=== PATIENT | male | born 1945 | race Caucasian/White ===

== ENCOUNTER 2019-07-23 15:00 | Inpatient (IN) | payer BC, MEDICARE ==
[2019-07-22] MEDS: InsuLIN R (HUMAN) 100 UNITS in SODIUM CHL 0.9% 99 ML IV SCH ×2
[2019-07-22] MEDS: SODIUM CHLORIDE 0.9% 1,000 ML IV SCH (23:00)
[2019-07-23] VITALS (13 sets, daily range): BP systolic 69–98; BP diastolic 39–64
[~2019-07-23] VITALS: Ht 165.1 cm; Wt 72.8 kg
[2019-07-23] MEDS: ACCU-CHEK COMFORT CURVE STRIP VI SCH ×5 (01:00→22:45)
[2019-07-23] MEDS ORDERED: MIDAZOLAM DRIP 50 mg/50mL 50 ML IV ONE (15:11)
[2019-07-23] MEDS ORDERED: ETOMIDATE (2MG/ML) 20ML VIAL IV ONE ×2 (15:11→16:30)
[2019-07-23] MEDS ORDERED: SUCCINYLCHOLINE CHLORIDE 20 MG/ML 10ML VIAL IV ONE ×2 (15:11→16:30)
[2019-07-23] MEDS ORDERED: SODIUM CHLORIDE 0.9% 1,000 ML IV ONE ×2 (15:11)
[2019-07-23] MEDS ORDERED: cefTRIAXone 1GM/50ML D5W 50 ML IV ONE (15:15)
[2019-07-23] MEDS ORDERED: NOREPINEPHRINE 8 MG/250ML KIT 250 ML IV ONE (15:19)
[2019-07-23] MEDS: MIDAZOLAM DRIP 50 mg/50mL 50 ML IV SCH (15:20)
[2019-07-23 15:46] LABS: Urine Bacteria NONE SEEN /hpf (None Seen); Urine Blood 1+ /uL (Negative); Urine Hyaline Cast MANY /lpf (0 - 2); Urine Mucus FEW (None Seen); Urine Specific Gravity 1.026 (1.001-1.035); Urine WBC 14 /hpf (0 - 3)
[2019-07-23] MEDS ORDERED: PROPOFOL 100 ML IV ONE (15:49)
[2019-07-23 16:04] LABS: Basophils # (auto) 0 uL; Eosinophils # (auto) 0 uL; Hemoglobin 10.4 g/dL (13.5-17.5); Lymphocytes # (auto) 0.3 uL; Monocytes # (auto) 0 uL; Neutrophils # (auto) 2.9 uL; White Blood Cell 3.2 10^3/uL (4.4-10.8)
[2019-07-23 16:09] LABS: Basophils % (auto) 0.2 % (0.0-2.0); Eosinophils % (auto) 0.1 % (0.0-7.0); Hematocrit 34.3 % (41.0-53.0); Mean Corpuscular Hemoglobin 34.4 pg (28.0-32.0); Mean Corpuscular Hgb Conc. 30.3 g/dL (32.0-36.0); Mean Corpuscular Volume 113.9 fL (80.0-100.0); Monocytes % (auto) 1.3 % (0.0-12.0); Neutrophils % (auto) 90.4 % (37.0-80.0); Platelet Count (auto) 71 10^3/uL (140-450); Red Blood Cells 3.01 10^6/uL (4.5-5.90); Red Cell Distribution Width 19.2 % (11.8-14.3)
[2019-07-23] MEDS: NOREPINEPHRINE 8 MG/250ML KIT 250 ML IV SCH (16:10)
[2019-07-23 16:20] LABS: INR 1.13 (0.9-1.15); Partial Thromboplastin Time 26.5 sec (23.64-32.05)
[2019-07-23] MEDS: PROPOFOL 100 ML IV SCH (16:20)
[2019-07-23 16:25] LABS: Lactic Acid w/Reflex 2.9 mmol/L (0.4-2.0)
[2019-07-23 16:37] LABS: Albumin 2.7 g/dL (3.4-5.0); BUN/Creatinine Ratio 28.6; Bilirubin, Total 1.1 mg/dL (0.2-1.0); Calcium 7.8 mg/dL (8.5-10.1); Potassium 4.8 mmol/L (3.5-5.1); Total Protein 5.4 g/dL (6.4-8.2)
[2019-07-23] MEDS ORDERED: InsuLIN R (HUMAN) 100 UNITS in SODIUM CHL 0.9% 99 ML IV SCH ×6 (16:45→22:26)
[2019-07-23] MEDS ORDERED: DEXTROSE (50%) 50ML SYRG IV PRN ×4 (16:45→22:30)
[2019-07-23] MEDS: SODIUM CHLORIDE 0.9% 1,000 ML IV SCH ×2 (16:59→18:45)
[2019-07-23] MEDS ORDERED: VANCOMYCIN 1GM/250ML 250 ML IV ONE (17:00)
[2019-07-23 17:29] LABS: Phosphorus 8.7 mg/dL (2.5-4.90)
[2019-07-23] MEDS ORDERED: InsuLIN REG 1unit/0.01ml Soln (100units/ml) IV ONE (18:15)
[2019-07-23] MEDS ORDERED: NITROGLYCERIN 0.4 MG SL TAB SL PRN (19:00)
[2019-07-23] MEDS ORDERED: MORPHINE SULF INJ 2 MG/ML SYRINGE 1ML IV PRN (19:00)
[2019-07-23] MEDS ORDERED: fentaNYL Drip 2500mCg/250mlNS 250 ML IV ONE (19:14)
[2019-07-23] MEDS: ALBUTEROL SULF 2.5 MG/0.5ML(0.5%) NEB SOLN NEB SCH (19:15)
[2019-07-23] MEDS: IPRATROPIUM BROM 0.5 MG/2.5ML INH SOL NEB SCH (19:17)
[2019-07-23] MEDS: fentaNYL Drip 2500mCg/250mlNS 250 ML IV SCH (19:32)
[2019-07-23] MEDS: PHENYLEPHRINE INJ 20 MG in SODIUM CHL 0.9% 250 ML IV SCH (19:50)
[2019-07-23 20:14] LABS: Lactic Acid w/Reflex 5.4 mmol/L (0.4-2.0)
[2019-07-23] MEDS ORDERED: AMIODARONE HCL 900 MG IV ONE (20:27)
--- NOTE | 2019-07-23 20:28 | NUR ---
Respiratory note: PT TRANSPORTED TO ICU WITHOUT INCIDENCE. MANUALLY VENTILATED VIA AMBU BAG ON 100% FIO2. PLACED BACK ON VENT, SAME SETTINGS. ET TUBE REMAINS AT 26CM AT THE LIP. REPORT GIVEN TO ICU RT PARISA. RNS AT BEDSIDE.
[2019-07-23] MEDS ORDERED: AMIODARONE HCL 900 MG in DEXTROSE 500 ML IV SCH (20:30)
[2019-07-23] MEDS ORDERED: SODIUM CHLORIDE 0.9% 1,000 ML IV SCH (20:45)
--- NOTE | 2019-07-23 20:45 | NUR ---
PT ARRIVED VIA GURNEY ON 2 VASOPRESSORS, SEDATED, TACCHYCARDIC AT 152/MIN. AMIODARON STARTED , INSULIN GTT AT 10 UNITS/HR, BG HIGH. LABS REPEATED UPON ADMISSION. PT REMAINS HYPOTENSIVE.
[2019-07-23 21:30] LABS: Albumin 2.6 g/dL (3.4-5.0); BUN/Creatinine Ratio 27.8; Bilirubin, Total 0.5 mg/dL (0.2-1.0); Calcium 7.8 mg/dL (8.5-10.1); Potassium 3.7 mmol/L (3.5-5.1); Total Protein 5.6 g/dL (6.4-8.2)
[2019-07-23 21:33] LABS: Hematocrit 35.8 % (41.0-53.0); Hemoglobin 11.3 g/dL (13.5-17.5); Mean Corpuscular Hemoglobin 33.4 pg (28.0-32.0); Mean Corpuscular Hgb Conc. 31.4 g/dL (32.0-36.0); Mean Corpuscular Volume 106.3 fL (80.0-100.0); Platelet Count (auto) 74 10^3/uL (140-450); Red Blood Cells 3.37 10^6/uL (4.5-5.90); Red Cell Distribution Width 19.1 % (11.8-14.3)
[2019-07-23 21:50] LABS: Band Neutrophils % (manual) 0; Basophils % (manual) 0 (0.0-2.0); Blast Cells 0; Eosinophils % (manual) 0 (0-7); Metamyelocytes % 0; Myelocytes % 0; Promyelocytes % 0; Reactive Lymphocytes 0
[2019-07-23] MEDS ORDERED: AMIODARONE HCL (50 MG/ ML) 3 ML VIAL IV ONE (22:55)
[2019-07-23 23:05] LABS: Lymphocytes % (manual) 19 (10.0-50.0)
[2019-07-23 23:06] LABS: Monocytes % (manual) 1 (0-12)
[2019-07-23] MEDS ORDERED: ALBUMIN 5% 250 ML IV ONE (23:30)
[2019-07-24] VITALS (89 sets, daily range): BP systolic 58–166; BP diastolic 36–100
[2019-07-24] MEDS ORDERED: InsuLIN REG 1unit/0.01ml Soln (100units/ml) ONE (00:11)
[2019-07-24] MEDS: ALBUTEROL SULF 2.5 MG/0.5ML(0.5%) NEB SOLN NEB SCH ×4 (00:15→18:55)
[2019-07-24] MEDS: PHENYLEPHRINE INJ 20 MG in SODIUM CHL 0.9% 250 ML IV SCH (00:39)
[2019-07-24] MEDS: IPRATROPIUM BROM 0.5 MG/2.5ML INH SOL NEB SCH ×4 (00:40→18:55)
[2019-07-24] MEDS ORDERED: VASOPRESSIN 20 UNIT/ML ONE ×2 (00:51→16:08)
[2019-07-24] MEDS ORDERED: PHENYLEPHRINE IV 500 ML IV ONE (00:54)
[2019-07-24] MEDS ORDERED: ACETAMINOPHEN 650 mg PER 20 mL UD PO ONE (01:00)
[2019-07-24] MEDS: VASOPRESSIN 50 UNITS in D5W 5% 247.5 ML IV SCH ×2 (01:00→13:50)
[2019-07-24] MEDS: NOREPINEPHRINE 8 MG/250ML KIT 250 ML IV SCH ×3 (01:24→20:22)
[2019-07-24] MEDS: ACCU-CHEK COMFORT CURVE STRIP VI SCH ×24 (01:30→22:30)
[2019-07-24] MEDS: AMIODARONE HCL 900 MG in DEXTROSE 500 ML IV SCH (02:30)
--- NOTE | 2019-07-24 03:50 | NUR ---
IN SPITE OF VASOPRESSIN ADDED AND MAXED UP, ALBUMIN GIVEN AND IVF AT 250 THEN 150/HR , PT STILL HYPOTENSIVE. BG NOW 216, Noemi CORDERO PSGED ORDERED STAT ABG. HR DOWN TO 135/MIN, SATS LOW 90'S. SEDATION REDUCED TO MINIMUM. T 103 RECTALLY, COOLING MEASURES AND TYLENOL GIVEN.
[2019-07-24] MEDS ORDERED: EPINEPHrine HCL 250 ML IV ONE ×2 (04:05→10:05)
[2019-07-24 04:07] LABS: Hematocrit 32.1 % (41.0-53.0); Mean Corpuscular Hemoglobin 35.6 pg (28.0-32.0); Mean Corpuscular Hgb Conc. 34.2 g/dL (32.0-36.0); Platelet Count (auto) 51 10^3/uL (140-450); Red Blood Cells 3.08 10^6/uL (4.5-5.90); Red Cell Distribution Width 18.5 % (11.8-14.3)
[2019-07-24 04:12] LABS: BUN/Creatinine Ratio 26.3; Calcium 7.5 mg/dL (8.5-10.1); Magnesium 2.3 mg/dL (1.6-2.6); Phosphorus 3.9 mg/dL (2.5-4.90); Potassium 3.5 mmol/L (3.5-5.1)
[2019-07-24] MEDS: EPINEPHrine HCL INJECTION 4 MG in SODIUM CHL 0.9% 250 ML IV SCH ×2 (04:26→10:12)
[2019-07-24 04:34] LABS: White Blood Cell 1.2 10^3/uL (4.4-10.8)
[2019-07-24 04:36] LABS: Basophils % (manual) 0 (0.0-2.0); Blast Cells 0; Eosinophils % (manual) 0 (0-7); Metamyelocytes % 0; Myelocytes % 0; Promyelocytes % 0; Reactive Lymphocytes 0
[2019-07-24] MEDS ORDERED: PHENYLEPHRINE IV 250 ML IV ONE (04:46)
[2019-07-24] MEDS: SODIUM CHLORIDE 0.9% 1,000 ML IV SCH (05:25)
[2019-07-24 06:25] LABS: Band Neutrophils % (manual) 12; Lymphocytes % (manual) 36 (10.0-50.0); Monocytes % (manual) 6 (0-12)
[2019-07-24 07:28] LABS: White Blood Cell 1.6 10^3/uL (4.4-10.8)
--- NOTE | 2019-07-24 07:52 | NUR ---
AT BEDSIDE: Dr. Brown at bedside, order for 12 lead ECG received.
[2019-07-24] MEDS ORDERED: SOD CHL 0.45% 1,000 ML IV SCH (08:45)
--- NOTE | 2019-07-24 08:53 | NUR ---
PROVIDER PHONE CALL; Received call from Zeynep Perez NP, states that after reviewing labs new orders were entered. Orders reviewed and carried out.
[2019-07-24] MEDS ORDERED: cefTRIAXone 1GM/50ML D5W 50 ML IV SCH (09:00)
--- NOTE | 2019-07-24 09:12 | NUR ---
AT BEDSIDE: Dr. Brown at bedside for emergent cardioversion. Patient hemodynamically unstable requiring multiple vasopressor support. Synchronized cardioversion performed at 100 joules, patient controlled A-fib s/p successful cardioversion. Attempted to call patient's brother Loyd who is listed as next of kin, call went directly to voicemail message left requesting return call for patient condition update.
--- NOTE | 2019-07-24 09:20 | NUR ---
Respiratory note: RR HAS BEEN INCREASED TO 20 PER APRIL SALMARINO CRANE RIGGER. CURRENT VENT SETTINGS: AC RR 20, VT 550, PEEP 5 AND 30% FO2.
--- NOTE | 2019-07-24 09:37 | NUR ---
FAMILY PHONE CALL: Received return call from Loyd, patient's brother. Updated him on patient condition, informed Loyd of emergent cardioversion that was performed. Also informed Loyd that the patient remains in critical and unstable condition.
--- NOTE | 2019-07-24 09:42 | NUR ---
CALL FROM MICRO: Received call from microbiology with critical blood culture results. Blood cultures are positive, results to be released.
[2019-07-24] MEDS: PHENYLEPHRINE INJ 80 MG in SODIUM CHL 0.9% 250 ML IV SCH (09:45)
[2019-07-24] MEDS ORDERED: ENOXAPARIN SOD 30 MG/0.3 ML SYRINGE SC SCH (10:00)
[2019-07-24] MEDS ORDERED: AZITHROMYCIN 500MG/ 250ML 250 ML IV SCH (10:00)
[2019-07-24] MEDS: FREE WATER NG SCH ×4 (10:12→21:52)
--- NOTE | 2019-07-24 10:17 | NUR ---
AT BEDSIDE: Dr. Reeves at bedside. Updated on patient condition, current drips and rates as well morning cardioversion. New orders received.
--- NOTE | 2019-07-24 10:20 | NUR ---
FUR BLOWER: technical account manager at bedside for 2D echo.
[2019-07-24] MEDS ORDERED: D5W 5% 1,000 ML IV SCH (10:45)
[2019-07-24] MEDS ORDERED: FUROSEMIDE 100 MG/10ML VIAL IV ONE (10:45)
[2019-07-24 12:05] LABS: BUN/Creatinine Ratio 26.2; Calcium 6.9 mg/dL (8.5-10.1); Potassium 3.7 mmol/L (3.5-5.1)
[2019-07-24] MEDS ORDERED: FILGRASTIM(TBO) 480 MCG/0.8 ML SYRG SC SCH (12:30)
[2019-07-24] MEDS ORDERED: PANTOPRAZOLE 40 MG/10 ML VIAL INJ IV ONE (12:30)
[2019-07-24] MEDS ORDERED: HYDROCORTISONE SOD SUCC 100 MG/2ML INJ VIAL IV ONE (12:30)
[2019-07-24] MEDS ORDERED: VANCOMYCIN PER PHARMACY 0 MG IV SCH (12:45)
[2019-07-24] MEDS ORDERED: VANCOMYCIN 1GM/250ML 250 ML IV ONE (13:00)
[2019-07-24] MEDS ORDERED: SODIUM BICARBONATE 8.4 % INJ 50ML VIAL IV ONE (13:15)
[2019-07-24] MEDS: D5W/SOD CHL 0.45% 1,000 ML IV SCH ×2 (13:22→21:52)
[2019-07-24] MEDS ORDERED: MEROPENEM 1GM IVPB 100 ML IV SCH (14:00)
[2019-07-24] MEDS: MEROPENEM 1GM IVPB 100 ML IV SCH (14:00)
--- NOTE | 2019-07-24 14:23 | NUR ---
Assessment Pt is a 74 yr old intubated male. Pt did not have family bedside. Nurse reported that pt is in critical and unstable condition. Pt's brother Loyd had been in briefly but nurse was unable to receive a contact # for him. There is no contact # on file for the pt. SW will assess for needs closer to d/c. Addendum: 07/24/19 at 1447 by KALEY BOLANOS SS Amended: Links added.
--- NOTE | 2019-07-24 14:45 | NUR ---
CALL TO PHARMACY; Called placed to pharmacy requesting Meropenem.
[2019-07-24] MEDS: MIDAZOLAM DRIP 50 mg/50mL 50 ML IV SCH (15:32)
[2019-07-24] MEDS: PROPOFOL 100 ML IV SCH (15:46)
--- NOTE | 2019-07-24 16:00 | NUR ---
CALL TO PHARMACY: structural engineering technician stocking [employer], checked for Meropenem not in [facility]. Second call placed to pharmacy, order is entered appropriately in [employer].
--- NOTE | 2019-07-24 16:50 | NUR ---
AT BEDSIDE; Dr. Sheppard at bedside, spoke with patient's brother Loyd. Asked Dr. Sheppard about bone marrow biopsy for tomorrow, states that he is going to cancel it as this patient is known to him in the outpatient setting.
--- NOTE | 2019-07-24 17:00 | NUR ---
CALL TO PHARMACY: Third call placed to pharmacy requesting Meropenem, state they will send in bullet.
[2019-07-24] MEDS ORDERED: HYDR-4833 PO (17:09)
[2019-07-24] MEDS ORDERED: ATEN-60 PO (17:09)
[2019-07-24] MEDS ORDERED: ONDA-155 PO (17:09)
[2019-07-24] MEDS ORDERED: CARI100T PO (17:09)
[2019-07-24] MEDS ORDERED: CHOL20007 PO (17:09)
[2019-07-24] MEDS ORDERED: ALPR0.5T7 PO (17:09)
[2019-07-24] MEDS ORDERED: TRAM50TA2 PO (17:09)
[2019-07-24] MEDS ORDERED: POM PO (17:13)
--- NOTE | 2019-07-24 18:00 | NUR ---
CALL TO PHARMACY: Fourth call placed to pharmacy, requesting Meropenem.
[2019-07-24] MEDS: fentaNYL Drip 2500mCg/250mlNS 250 ML IV SCH (19:26)
--- NOTE | 2019-07-24 19:34 | NUR ---
BG 214 - MAINTAIN ON ALGORITHM #3 AT 6 UNITS/HR
--- NOTE | 2019-07-24 20:00 | NUR ---
OPENING NOTE: INTUBATED AND SEDATED. INITIALLY NOT RESPONSIVE EVEN TO DEEP STIMULI, HOWEVER, WHEN SUPERVISOR FERTILIZER WAS CLEANING THE PATIENT'S FEET, HE STARTED TO WITHDRAW FROM PAIN WELL GRIMACE AND STACK BREATHS ON THE VENTILATOR. AFIB, HR 90-100s. SBP > 100, MAP > 65 ON LEVO, EMRE AND VASOPRESSIN GTT. ABDOMEN EXTREMELY ROUND BUT SOFT. HYPOACTIVE BS. UNKNOWN LBM. NGT TO RIGHT NARE, CLAMPED FOR FREE WATER ADMINISTRATION, + AIR BOLUS. MONACO PATENT AND INTACT, DRAINING, PALE YELLOW URINE, WITH SEDIMENT, SLIGHT OOZING OF BLOOD NOTED FROM URETHRAL OPENING. RIGHT IJ TLC, CDI, PATENT WITH BLOOD RETURN. LEFT AC 18 G PIV, CDI, AND PATENT WITH BLOOD RETURN. SKIN GROSSLY INTACT. PER REPORT, MOTTLING TO HANDS AND FEET NOTED; HOWEVER, ON ASSESSMENT, FEET MOTTLING RESOLVED AND ONLY HAND MOTTLING REMAINS. RADIAL PULSES PALPABLE. PEDAL PULSES WEAK, AUSCULTATED BY DOPPLER. TEMP 99.8 RECTALLY ON GAYMAR COOLING BLANKET, SKIN PROTECTED FROM DIRECT EXPOSURE NO FAMILY PRESENT AT THIS TIME. REINFORCED POC. MAINTAINED PATIENT SAFETY: BED LOCKED AND IN THE LOWEST POSITION, FREQUENT VISUAL CHECKS. WILL CONT CARE
--- NOTE | 2019-07-24 20:57 | NUR ---
BG 150 - DECREASED TO 4 UNITS/HR PER ALGORITHM #3
--- NOTE | 2019-07-24 21:00 | NUR ---
UNABLE TO COMPLETE SEDATION VACATION AT THIS TIME: INCREASED SEDATION PREVIOUSLY FOR COMFORT. PATIENT ALSO HEMODYNAMICALLY UNSTABLE Addendum: 07/24/19 at 2220 by Zita Kaplan RN RN Amended: Links added.
--- NOTE | 2019-07-24 21:12 | NUR ---
MRSA AND RAPID INFLUENZA SENT TO LAB
[2019-07-24] MEDS: HYDROCORTISONE SOD SUCC 100 MG/2ML INJ VIAL IV SCH (21:52)
[2019-07-24 22:25] LABS: BUN/Creatinine Ratio 28.5; Calcium 6.9 mg/dL (8.5-10.1); Potassium 3.6 mmol/L (3.5-5.1)
--- NOTE | 2019-07-24 22:27 | NUR ---
BG 132 - DECREASED INSULIN GTT TO 3 UNITS/HR PER ALGORITHM #3
[2019-07-24] MEDS: InsuLIN R (HUMAN) 100 UNITS in SODIUM CHL 0.9% 99 ML IV SCH (22:43)
--- NOTE | 2019-07-24 23:59 | NUR ---
BG 199 - INCREASED INSULIN TO 5 UNITS/HR ON ALGORITHM #3
[2019-07-25] VITALS (103 sets, daily range): BP systolic 88–129; BP diastolic 48–75
[2019-07-25] MEDS: NOREPINEPHRINE 8 MG/250ML KIT 250 ML IV SCH ×3 (00:35→16:47)
--- NOTE | 2019-07-25 00:35 | NUR ---
PROGRESS NOTE: ONLY ON LEVOPHED GTT AT THIS TIME FOR BLOOD PRESSURE SUPPORT. REMAINS IN AFIB WITH HR 90-100s. VSS OTHERWISE STABLE. NO PAIN BEHAVIORS IDENTIFIED. WILL CONT CARE
[2019-07-25] MEDS: ACCU-CHEK COMFORT CURVE STRIP VI SCH ×12 (01:15→23:48)
--- NOTE | 2019-07-25 01:15 | NUR ---
BG 228 - INSULIN INCREASED TO 6 UNITS/HR ON ALGORITHM #3
[2019-07-25] MEDS: MEROPENEM 1GM IVPB 100 ML IV SCH ×2 (01:52→13:49)
[2019-07-25] MEDS: FREE WATER NG SCH ×6 (01:56→21:47)
[2019-07-25] MEDS: AMIODARONE HCL 900 MG in DEXTROSE 500 ML IV SCH ×2 (02:30→14:30)
--- NOTE | 2019-07-25 02:30 | NUR ---
BED BATH WITH CHG WIPES, MARY CARE, MONACO CARE, ORAL CARE, HAIR CARE, AND PARTIAL LINEN CHANGE COMPLETED
--- NOTE | 2019-07-25 02:58 | NUR ---
MINIMAL ORAL SECRETIONS WHEN SUCTIONING, BUT WHEN TURNED MODERATE TO LARGE AMOUNT OF BROWN FOUL SMELLING SECRETIONS
--- NOTE | 2019-07-25 02:58 | NUR ---
BG 156 - DECREASED INSULIN GTT TO 4 UNITS/HR PER ALGORITHM #3
--- NOTE | 2019-07-25 04:14 | NUR ---
PROGRESS NOTE: SLOWLY WEANING OFF OF LEVOPHED DRIP TOLERATED. VS OTHERWISE STABLE. NO PAIN BEHAVIORS IDENTIFIED. WILL CONT CARE
[2019-07-25 04:20] LABS: Basophils # (auto) 0 uL; Basophils % (auto) 0.1 % (0.0-2.0); Eosinophils # (auto) 0 uL; Hematocrit 31.1 % (41.0-53.0); Hemoglobin 10.5 g/dL (13.5-17.5); Lymphocytes # (auto) 0.5 uL; Lymphocytes % (auto) 6.3 % (10.0-50.0); Mean Corpuscular Hemoglobin 33.9 pg (28.0-32.0); Mean Corpuscular Hgb Conc. 33.6 g/dL (32.0-36.0); Mean Corpuscular Volume 100.9 fL (80.0-100.0); Monocytes # (auto) 0.2 uL; Monocytes % (auto) 2.5 % (0.0-12.0); Neutrophils # (auto) 7.3 uL; Neutrophils % (auto) 91.1 % (37.0-80.0); Platelet Count (auto) 36 10^3/uL (140-450); Red Blood Cells 3.08 10^6/uL (4.5-5.90); Red Cell Distribution Width 18.1 % (11.8-14.3); White Blood Cell 8.1 10^3/uL (4.4-10.8)
--- NOTE | 2019-07-25 04:27 | NUR ---
BG 127 - DECREASED INSULIN GTT TO 3 UNITS/HR PER ALGORITHM #3
[2019-07-25] MEDS: D5W/SOD CHL 0.45% 1,000 ML IV SCH ×3 (04:30→20:17)
[2019-07-25 04:40] LABS: Albumin 2.1 g/dL (3.4-5.0); BUN/Creatinine Ratio 30.8; Calcium 6.7 mg/dL (8.5-10.1); Magnesium 1.8 mg/dL (1.6-2.6); Potassium 3.1 mmol/L (3.5-5.1)
[2019-07-25 04:44] LABS: Bilirubin, Total 0.5 mg/dL (0.2-1.0); Phosphorus 3.6 mg/dL (2.5-4.90); Total Protein 5.1 g/dL (6.4-8.2)
[2019-07-25] MEDS ORDERED: VANCOMYCIN 1GM/250ML 250 ML IV SCH (05:00)
[2019-07-25] MEDS: HYDROCORTISONE SOD SUCC 100 MG/2ML INJ VIAL IV SCH ×3 (05:44→21:46)
[2019-07-25] MEDS: ALBUTEROL SULF 2.5 MG/0.5ML(0.5%) NEB SOLN NEB SCH ×4 (05:45→18:19)
[2019-07-25] MEDS: IPRATROPIUM BROM 0.5 MG/2.5ML INH SOL NEB SCH ×4 (05:45→18:19)
--- NOTE | 2019-07-25 05:48 | NUR ---
BG 147 - CONTINUE ON CURRENT RATE OF 3 UNITS/HR PER ALGORITHM #3
[2019-07-25] MEDS: fentaNYL Drip 2500mCg/250mlNS 250 ML IV SCH (05:51)
--- NOTE | 2019-07-25 05:51 | NUR ---
SCHEDULED FREE WATER FLUSH HELD - SODIUM WITHIN NORMAL LIMITS THIS AM, WILL ENDORSE TO DAY SHIFT TO FOLLOW UP ON NECESSITY
--- NOTE | 2019-07-25 06:25 | NUR ---
CLOSING NOTE: REMAINS INTUBATED AND SEDATED. VSS. NO PAIN BEHAVIORS IDENTIFIED. WILL CONT CARE
--- NOTE | 2019-07-25 07:17 | NUR ---
REPORT AND CARE ENDORSED TO ALIS HECK
[2019-07-25 07:20] LABS: Basophils % (manual) 0 (0.0-2.0); Blast Cells 0; Eosinophils % (manual) 0 (0-7); Metamyelocytes % 0; Myelocytes % 0; Promyelocytes % 0; Reactive Lymphocytes 0
--- NOTE | 2019-07-25 07:30 | NUR ---
BG 226 - INCREASED INSULIN GTT TO 6 UNITS/HR PER ALGORITHM #3
--- NOTE | 2019-07-25 07:35 | NUR ---
OPENING SHIFT NOTE Report received from Zita SNELL, care assumed. Patient observed resting in bed. Physical assessment performed. Patient is intubated on ventilator, ETT secured in [place], Ambu bag at bedside. No s/s of distress or pain noted. Oxygen saturation 99%. Lungs clear anteriorly. Low grade temp of 99.4 noted. Cooling measures in place. Pulses palpable radial bilaterally, weak. Pedal pulses noted with Doppler. Bilateral lower extremities have mottling, but blanchable, and are cool to touch. Bowel sounds noted, abdomen is soft, non-tender. Godoy catheter present, patent, and secure below bladder. Right IJ TLC dressing DCI. See skin/wound assessment. All extremities off load on pillows. Bed locked in lowest position, alarms in place. Will continue to monitor.
[2019-07-25 07:56] LABS: BUN/Creatinine Ratio 30.7; Calcium 6.9 mg/dL (8.5-10.1); Potassium 3.1 mmol/L (3.5-5.1)
[2019-07-25] MEDS: PHENYLEPHRINE INJ 80 MG in SODIUM CHL 0.9% 250 ML IV SCH (08:19)
[2019-07-25 08:48] LABS: Band Neutrophils % (manual) 17; Lymphocytes % (manual) 9 (10.0-50.0); Monocytes % (manual) 4 (0-12)
--- NOTE | 2019-07-25 08:50 | NUR ---
MD VISIT at bedside assessing patient. MD reviewing chart. MD wanting to attempt Cpap trial this afternoon.
[2019-07-25 09:25] LABS: Platelet Count (auto) 32 10^3/uL (140-450)
[2019-07-25] MEDS: POTASSIUM CHL 20MEQ/100ML 100 ML IV SCH ×2 (10:43→11:50)
[2019-07-25] MEDS: PANTOPRAZOLE 40 MG/10 ML VIAL INJ IV SCH (10:43)
--- NOTE | 2019-07-25 10:45 | NUR ---
MD VISIT at bedside. MD assessing patient and reviewing chart. Orders obtained. MD aware of plan of care for cpap trial today.
--- NOTE | 2019-07-25 11:13 | NUR ---
MD VISIT Dr. Hearn at bedside. MD aware of labs, platelet count, and imaging. D/Yuniel Chan. No new medication orders received. Will continue to monitor.
--- NOTE | 2019-07-25 12:41 | NUR ---
MD MCLEAN Spoke with regarding insulin gtt. gave orders to D/C IV insulin and change to a sliding scale.
--- NOTE | 2019-07-25 14:13 | NUR ---
MD VISIT at bedside assessing patient. MD reviewing chart, no new orders received at this time. Will continue to monitor.
--- NOTE | 2019-07-25 14:30 | NUR ---
UPDATE called to see if patient is awake enough to be placed on Cpap trial. Patient does not open eyes or follow commands at this time.
[2019-07-25] MEDS: MIDAZOLAM DRIP 50 mg/50mL 50 ML IV SCH (15:32)
[2019-07-25] MEDS: InsuLIN REG 1unit/0.01ml Soln (100units/ml) SC SCH ×3 (16:00→23:48)
[2019-07-25] MEDS: PROPOFOL 100 ML IV SCH (16:29)
--- NOTE | 2019-07-25 16:47 | NUR ---
CARES Complete linen change complete. Re-assessment of skin performed, intact. Patient repositioned in bed on side with head of bed greater than 30 degree's. Rectal temp 100.1, cooling measures initiated. Patient tolerated activity. Patient still unable to open eyes and follow commands for cpap trial at this time. Vital signs stable. Bed locked in lowest position, alarms in place. Will continue to monitor.
--- NOTE | 2019-07-25 17:46 | NUR ---
MD UPDATE called for update. MD ordered repeat ECHO due to limited study on last echo, MD wants to rule out vegetation.
--- NOTE | 2019-07-25 17:50 | NUR ---
MD VISIT at bedside, he is aware of plan to wean patient when awake. Patient heart rate is elevated 120's. Small amount of sedation restarted to allow heart rate to decrease and patient to rest.
--- NOTE | 2019-07-25 19:03 | NUR ---
REPORT Report given to Zita SNELL, care endorsed
--- NOTE | 2019-07-25 19:30 | NUR ---
OPENING NOTE: INTUBATED AND OFF SEDATION, OPENING EYES BUT ROCKING HIS HEAD BACK AND FORTH, AND APPEARS UNCOMFORTABLE. AFIB, HR 90-120s. SBP > 100, MAP > 65 ON LEVO GTT. ABDOMEN EXTREMELY ROUND BUT SOFT. HYPOACTIVE BS. UNKNOWN LBM. NGT TO RIGHT NARE, + AIR BOLUS. MONACO PATENT AND INTACT, DRAINING, PALE YELLOW URINE, WITH SEDIMENT, SLIGHT OOZING OF BLOOD NOTED FROM URETHRAL OPENING. RIGHT IJ TLC, CDI, PATENT WITH BLOOD RETURN. LEFT AC 18 G PIV, CDI, AND PATENT WITH BLOOD RETURN. SKIN GROSSLY INTACT. PER REPORT, MOTTLING TO HANDS AND FEET NOTED; HOWEVER, ON ASSESSMENT, FEET MOTTLING RESOLVED AND ONLY HAND MOTTLING REMAINS. RADIAL PULSES PALPABLE. PEDAL PULSES WEAK, AUSCULTATED BY DOPPLER. TEMP 99.6F RECTALLY ON GAYMAR COOLING BLANKET, SKIN PROTECTED FROM DIRECT EXPOSURE NO FAMILY PRESENT AT THIS TIME. REINFORCED POC. MAINTAINED PATIENT SAFETY: BED LOCKED AND IN THE LOWEST POSITION, FREQUENT VISUAL CHECKS. WILL CONT CARE
--- NOTE | 2019-07-25 21:00 | NUR ---
BECOMING MORE AROUSABLE BUT APPEARS VERY UNCOMFORTABLE, ON LOW DOSE FENTANYL GTT Addendum: 07/25/19 at 2220 by Zita Kaplan RN RN Amended: Links added.
[2019-07-25] MEDS ORDERED: INSULIN LANTUS (GLARGINE) 1 /0.01ml (100units/ml) SC SCH (22:00)
--- NOTE | 2019-07-25 22:25 | NUR ---
REMOVED PIV TO LEFT AC, TIP INTACT
--- NOTE | 2019-07-25 23:20 | NUR ---
NOTED WITH ABNORMAL ABDOMINAL BREATHING WELL VENT DISCREPANCY - PAGED RT
--- NOTE | 2019-07-25 23:30 | NUR ---
Respiratory note: PLACED PT BACK TO AC SETTINGS AT THIS TIME, PT ASYNCHRONOUS WITH THE VENT ON SIMV.
--- NOTE | 2019-07-25 23:56 | NUR ---
PATIENT ABDOMINALLY BREATHING, AND STACKING HIS BREATH - SEDATION INCREASED
[2019-07-26] VITALS (109 sets, daily range): BP systolic 93–120; BP diastolic 47–71
[2019-07-26] MEDS: ALBUTEROL SULF 2.5 MG/0.5ML(0.5%) NEB SOLN NEB SCH ×5 (00:16→22:00)
[2019-07-26] MEDS: IPRATROPIUM BROM 0.5 MG/2.5ML INH SOL NEB SCH ×5 (00:17→22:00)
--- NOTE | 2019-07-26 00:20 | NUR ---
HR WITH SUDDEN DROP FROM 120 TO 40s, CAME BACK UP TO HR 60s - AMIODARONE TURNED OFF, 12 LEAD EKG DONE
[2019-07-26] MEDS: VASOPRESSIN 50 UNITS in D5W 5% 247.5 ML IV SCH (01:00)
[2019-07-26] MEDS: MEROPENEM 1GM IVPB 100 ML IV SCH ×2 (01:34→13:35)
[2019-07-26] MEDS: FREE WATER NG SCH ×2 (02:00→05:39)
--- NOTE | 2019-07-26 02:00 | NUR ---
SCHEDULE WATER FLUSH HELD - SODIUM WITHIN NORMAL LIMITS
--- NOTE | 2019-07-26 02:33 | NUR ---
BED BATH WITH CHG WIPES, MONACO CARE, MARY CARE, ORAL CARE, AND FULL LINEN CHANGE COMPLETED
[2019-07-26] MEDS: ACCU-CHEK COMFORT CURVE STRIP VI SCH ×6 (03:36→23:38)
[2019-07-26] MEDS: InsuLIN REG 1unit/0.01ml Soln (100units/ml) SC SCH ×6 (03:36→23:38)
[2019-07-26 03:57] LABS: Basophils % (manual) 0 (0.0-2.0); Blast Cells 0; Eosinophils % (manual) 0 (0-7); Metamyelocytes % 0; Myelocytes % 0; Promyelocytes % 0; Reactive Lymphocytes 0
[2019-07-26] MEDS: EPINEPHrine HCL INJECTION 4 MG in SODIUM CHL 0.9% 250 ML IV SCH (04:00)
[2019-07-26 04:03] LABS: Hemoglobin 9.4 g/dL (13.5-17.5); Mean Corpuscular Volume 100.4 fL (80.0-100.0); Red Cell Distribution Width 18.1 % (11.8-14.3)
[2019-07-26 04:05] LABS: Hematocrit 27.4 % (41.0-53.0); Mean Corpuscular Hemoglobin 34.3 pg (28.0-32.0); Mean Corpuscular Hgb Conc. 34.1 g/dL (32.0-36.0); Red Blood Cells 2.73 10^6/uL (4.5-5.90); White Blood Cell 8.4 10^3/uL (4.4-10.8)
[2019-07-26 04:31] LABS: BUN/Creatinine Ratio 26.3; Calcium 7.3 mg/dL (8.5-10.1); Potassium 3.3 mmol/L (3.5-5.1)
[2019-07-26] MEDS: D5W/SOD CHL 0.45% 1,000 ML IV SCH ×2 (04:34→05:24)
[2019-07-26 04:36] LABS: Platelet Count (auto) 12 10^3/uL (140-450)
[2019-07-26] MEDS ORDERED: VANCOMYCIN 1GM/250ML 250 ML IV SCH (05:00)
--- NOTE | 2019-07-26 05:07 | NUR ---
SPOKE TO DR. MIR ABOUT PLATELET COUNT AND POTASSIUM LEVEL: PER DR. MIR, CLARIFY TRANSFUSION WITH HEMATOLOGY/ONCOLOGY. GIVE 40 MEQ KCL PO. ORDERS READBACK AND VERIFIED. WILL CONT CARE
[2019-07-26] MEDS ORDERED: POTASSIUM EFFERVESENT TAB 25 MEQ PO ONE ×2 (05:15→10:00)
[2019-07-26] MEDS: HYDROCORTISONE SOD SUCC 100 MG/2ML INJ VIAL IV SCH ×3 (05:39→21:37)
--- NOTE | 2019-07-26 06:08 | NUR ---
CLOSING NOTE: REMAINS INTUBATED AND LIGHTLY SEDATED, RESPONSIVE TO PAINFUL STIMULI. VSS OTHERWISE STABLE WILL CONT CARE
[2019-07-26 07:15] LABS: Band Neutrophils % (manual) 12; Lymphocytes % (manual) 9 (10.0-50.0); Monocytes % (manual) 1 (0-12)
--- NOTE | 2019-07-26 07:25 | NUR ---
OPENING SHIFT NOTE Report received from Zita SNELL, care assumed. Patient observed resting in bed. Physical assessment performed. Patient is intubated on ventilator, ETT secured in [place], Ambu bag at bedside. No s/s of distress or pain noted. Oxygen saturation 100%. Lungs clear anteriorly. Pulses palpable radial bilaterally, weak. Pedal pulses noted with Doppler. Afebrile. Pupils are equal and reactive, cough and gag noted. Godoy catheter present, patent, and secure below bladder. Right IJ TLC dressing DCI. See skin/wound assessment. All extremities off load on pillows. Bed locked in lowest position, alarms in place. Will continue to monitor.
--- NOTE | 2019-07-26 07:26 | NUR ---
REPORT AND CARE GIVEN TO ALIS HECK
[2019-07-26] MEDS: PHENYLEPHRINE INJ 80 MG in SODIUM CHL 0.9% 250 ML IV SCH (08:19)
--- NOTE | 2019-07-26 08:45 | NUR ---
VISITOR Patient co-worker at bedside.
--- NOTE | 2019-07-26 09:17 | NUR ---
PAGED paged regarding low platelet count, labs, and blood sugar trends. Orders received and placed. to round at bedside in one hour.
[2019-07-26 09:54] LABS: Hepatitis A Ab IgM Negative; Hepatitis B Core IgM Negative
[2019-07-26 09:55] LABS: Hepatitis B Surface Antigen Negative (Negative); Hepatitis C Antibody Negative (Negative)
[2019-07-26] MEDS: PANTOPRAZOLE 40 MG/10 ML VIAL INJ IV SCH (10:10)
[2019-07-26] MEDS: SOD CHL 0.45% 1,000 ML IV SCH ×2 (10:14→23:05)
--- NOTE | 2019-07-26 10:30 | NUR ---
PLACED PT ON CPAP TRIAL. PT KEELEY. WELL. WILL CONTINUE TO MONITOR PT.
--- NOTE | 2019-07-26 10:39 | NUR ---
CPAP TRIAL BEGUN.
--- NOTE | 2019-07-26 11:57 | NUR ---
ETT RETRACTED TO 25CM AT THE LIPLINE PER XRAY.
--- NOTE | 2019-07-26 12:00 | NUR ---
WOUND CARE NOTE: ADDED PATIENT TO SKIN INTEGRITY MONITORING FOR INTUBATION STATUS. PATIENT ADMITTED TO [facility] WITH DIAGNOSIS OF DKA. CURRENT KELLI SCORE IS 13. PATIENT IS CURRENTLY IN CPAP TRIAL FOR POSSIBLE EXTUBATION TODAY. HE IS WOUND FREE AT THIS TIME. SKIN/WOUND CARE PLAN IMPLEMENTED. PATIENT WOULD BENEFIT FROM FREQUENT TURN SCHEDULE Q 2 HOURS, PRN CONDITION PERMITS, WITH PRESSURE REDISTRIBUTION USING PILLOWS/WEDGES, BID/PRN APPLICATION WITH MOISTURE BARRIER CREAM, OPTIFOAM GENTLE SACRAL DRESSING PREVENTATIVE, SKIN/WOUND CARE PLAN, DIETARY CONSULT, CONTINUED MONITORING BY WOUND CARE TEAM.
--- NOTE | 2019-07-26 12:13 | NUR ---
Nutrition Assessment Notes please se attached link for complete assessment Est. Needs BW (69 kg): [id number] kcal (25-30 kcal/kgBW), 69-89 gms pro (1.0-1.3 gms/kgBW r/t severe hypoalb). Will continue to monitor pertinent labs and reassess nutrient need prn Addendum: 07/26/19 at [address] Amended: Links added.
--- NOTE | 2019-07-26 13:30 | NUR ---
PAGED called re:Cpap abg and weaning parameters. Waiting for call back. Continue care.
--- NOTE | 2019-07-26 13:50 | NUR ---
MD RETURNED CALL notified of ABG and weaning parameters. MD would like better weaning numbers and for patient to be more awake before extubating. RT notified to recheck weaning parameters at 1500.
--- NOTE | 2019-07-26 14:33 | NUR ---
BLOOD PRODUCT One unit of platelet administration begun per MD order. No reactions noted.
[2019-07-26] MEDS: MIDAZOLAM DRIP 50 mg/50mL 50 ML IV SCH (15:28)
[2019-07-26] MEDS: PROPOFOL 100 ML IV SCH (16:29)
--- NOTE | 2019-07-26 16:30 | NUR ---
PLACED PT BACK ON AC MODE ALIS POWER AT BEDSIDE .
--- NOTE | 2019-07-26 16:37 | NUR ---
MD VISIT at bedside assessing patient. Performing weaning parameters with RT at bedside. MD does not want to extubate today due to patient still being drowsy. Sedation d/c and ventilator orders received. Bite block placed due to patient biting on the ET tube.
[2019-07-26] MEDS: MIDAZOLAM HCL 1MG/1ML-2 ML VIAL IV PRN ×3 (17:47→22:30)
--- NOTE | 2019-07-26 17:47 | NUR ---
VERSED PRN versed administered because patient was becoming restless and attempting to bite ET tube despite bite block and pushing ET tube out in hopes to dislodge tube. Patient instructed to stop biting and moving ET tube, patient did not follow commands and continued. All vitals stable, oxygen saturation 100%.
--- NOTE | 2019-07-26 17:48 | NUR ---
RT NOTE RECEIVED PT INTUBATED AND ON VENT V11 ON STATED SETTINGS. VENT IS PLUGGED TO RED OUTLET. ALARMS ARE ON AND AUDIBLE AT NURSES STATION. AMBU BAG AT BEDSIDE AND CONNECTED TO O2 SOURCE. 8.0 ETT IS SECURED WITH ANCHORFAST AT 24 CM TO THE ORAL LEFT. ANCHORFAST HAS A BITE BLOCK BECAUSE THE PT KEEPS CHEWING ON THE TUBE. BILATERAL BS ARE CTA. PT WAS SUCTIONED FOR MODERATE RETURN, HHN GIVEN INLINE WITH 2.5 MG ALBUTEROL AND 0.5 MG ATROVENT WITHOUT ADVERSE REACTION NOTED. PT TEMP IS 99.1 AND IS ON COOLING MEASURES. CONT ORDERED. POX 100% Addendum: 07/26/19 at 1937 by Teresita Banks RT Amended: Links added.
--- NOTE | 2019-07-26 18:30 | NUR ---
MD VISIT at bedside assessing patient. placed orders for platelet transfusion. MD does not wish to d/c steroid injections at this time.
--- NOTE | 2019-07-26 18:48 | NUR ---
LABS Blood sent to labs for potassium and platelet levels.
--- NOTE | 2019-07-26 19:09 | NUR ---
REPORT Report given to Zita SNELL, care endorsed.
--- NOTE | 2019-07-26 19:15 | NUR ---
PARTIAL LINEN CHANGE AND PARTIAL BED BATH COMPLETED
--- NOTE | 2019-07-26 19:50 | NUR ---
OPENING NOTE: INTUBATED AND OFF SEDATION, OPENS EYES, FOLLOWS COMMANDS, TRACKS, NODS HEAD APPROPRIATELY; HOWEVER UNABLE TO KEEP EYES OPEN AT THIS TIME. NSR, HR 80s. SBP > 100, MAP > 65 WITHOUT ANY VASOPRESSOR SUPPORT. ABDOMEN EXTREMELY ROUND BUT SOFT. HYPOACTIVE BS. UNKNOWN LBM. NGT TO RIGHT NARE, + AIR BOLUS. MONACO PATENT AND INTACT, DRAINING, PALE YELLOW URINE, WITH SEDIMENT, SLIGHT OOZING OF BLOOD NOTED FROM URETHRAL OPENING. RIGHT IJ TLC, CDI, PATENT WITH BLOOD RETURN. SKIN GROSSLY INTACT. RADIAL PULSES PALPABLE. PEDAL PULSES WEAK, AUSCULTATED BY DOPPLER. TEMP 99.1F RECTALLY ON GAYMAR COOLING BLANKET, SKIN PROTECTED FROM DIRECT EXPOSURE NO FAMILY PRESENT AT THIS TIME. REINFORCED POC. MAINTAINED PATIENT SAFETY: BED LOCKED AND IN THE LOWEST POSITION, FREQUENT VISUAL CHECKS. WILL CONT CARE
--- NOTE | 2019-07-26 20:11 | NUR ---
RT NOTE ROUTINE VENT CHECK DONE. PT INTUBATED AND ON VENT V11 ON STATED SETTINGS. VENT IS PLUGGED TO RED OUTLET. ALARMS ARE ON AND AUDIBLE AT NURSES STATION. AMBU BAG AT BEDSIDE AND CONNECTED TO O2 SOURCE. 8.0 ETT IS SECURED WITH ANCHORFAST AT 24 CM TO THE ORAL LEFT. ANCHORFAST HAS A BITE BLOCK BECAUSE THE PT KEEPS CHEWING ON THE TUBE. VENT SETTINGS CHANGED T SIMV 8, 500, 30%, PEEP 5, PRESSURE SUPPORT 8 PER CURRENT ORDERS. RN GÓMEZ NOTIFIED. BILATERAL BS ARE CTA. PT TEMP IS 99.3 AND IS ON COOLING MEASURES. CONT ORDERED. POX 100% Addendum: 07/26/19 at 2027 by Teresita Banks RT Amended: Links added.
--- NOTE | 2019-07-26 20:25 | NUR ---
VERSED PRN GIVEN - PATIENT NOTED TO BE ROCKING BACK IN FORTH IN THE BED, GRIMACING, RR IN HIGH 20s, APPEARS UNCOMFORTABLE.
--- NOTE | 2019-07-26 21:00 | NUR ---
SEDATION VACATION: REMAINS OFF OF SEDATION. ABLE TO RECEIVE VERSED IVP PRN. OPENS EYES BUT NOT SUSTAINED. INTERMITTENTLY RESTLESS ON SIMV VENT SETTINGS. WILL CONT, AND ADMINISTER PRN SEDATION NEEDED. WILL CONT CARE Addendum: 07/26/19 at 2154 by Zita Kaplan RN RN Amended: Links added.
--- NOTE | 2019-07-26 21:02 | NUR ---
ROUNDED: RR IN THE TEENS, HR IN THE 70s. PATIENT STILL MOVING BUT APPEARS, MORE COMFORTABLE THAN PREVIOUSLY.
[2019-07-26] MEDS: INSULIN LANTUS (GLARGINE) 1 /0.01ml (100units/ml) SC SCH (21:37)
--- NOTE | 2019-07-26 21:58 | NUR ---
RT NOTE ROUTINE VENT CHECK DONE. PT INTUBATED AND ON VENT V11 ON STATED SETTINGS. VENT IS PLUGGED TO RED OUTLET. ALARMS ARE ON AND AUDIBLE AT NURSES STATION. AMBU BAG AT BEDSIDE AND CONNECTED TO O2 SOURCE. 8.0 ETT IS SECURED WITH ANCHORFAST AT 24 CM TO THE ORAL LEFT. ANCHORFAST HAS A BITE BLOCK BECAUSE THE PT KEEPS CHEWING ON THE TUBE. BILATERAL BS ARE CTA. PT WAS SUCTIONED FOR SMALL RETURN. HHN GIVEN INLINE WITH 2.5 MG ALBUTEROL AND 0.5 MG ATROVENT WITHOUT ADVERSE REACTION NOTED. PT TEMP IS 99.2 AND IS ON COOLING MEASURES. CVP 3. CONT ORDERED. POX 99% Addendum: 07/26/19 at 2225 by Teresita Banks RT Amended: Links added.
--- NOTE | 2019-07-26 22:30 | NUR ---
APPEARS UNCOMFORTABLE, ROCKING BACK IN FORTH IN THE BED - VERSED PRN GIVEN
--- NOTE | 2019-07-26 23:07 | NUR ---
RESTING MORE COMFORTABLY THAN PREVIOUSLY.
[2019-07-27] VITALS (59 sets, daily range): BP systolic 92–119; BP diastolic 44–68
--- NOTE | 2019-07-27 00:02 | NUR ---
RT NOTE ROUTINE VENT CHECK DONE. PT INTUBATED AND ON VENT V11 ON STATED SETTINGS. VENT IS PLUGGED TO RED OUTLET. ALARMS ARE ON AND AUDIBLE AT NURSES STATION. AMBU BAG AT BEDSIDE AND CONNECTED TO O2 SOURCE. 8.0 ETT IS SECURED WITH ANCHORFAST AT 24 CM TO THE ORAL LEFT. ANCHORFAST HAS A BITE BLOCK BECAUSE THE PT KEEPS CHEWING ON THE TUBE. BILATERAL BS ARE CTA. PT WAS SUCTIONED FOR SMALL RETURN. PT TEMP IS 99.1 AND IS ON COOLING MEASURES. CONT ORDERED. POX 100% Addendum: 07/27/19 at 0025 by Teresita Banks RT Amended: Links added.
[2019-07-27] MEDS: VASOPRESSIN 50 UNITS in D5W 5% 247.5 ML IV SCH (00:43)
--- NOTE | 2019-07-27 00:44 | NUR ---
ROUNDED: APPEARS TO BE COMFORTABLE AT THIS TIME. VSS AT THIS TIME. WILL CONT CARE
[2019-07-27] MEDS ORDERED: VANCOMYCIN 1GM/250ML 250 ML IV SCH (01:00)
[2019-07-27] MEDS: MEROPENEM 1GM IVPB 100 ML IV SCH ×2 (01:49→14:48)
--- NOTE | 2019-07-27 02:03 | NUR ---
RT NOTE ROUTINE VENT CHECK DONE. PT INTUBATED AND ON VENT V11 ON STATED SETTINGS. VENT IS PLUGGED TO RED OUTLET. ALARMS ARE ON AND AUDIBLE AT NURSES STATION. AMBU BAG AT BEDSIDE AND CONNECTED TO O2 SOURCE. 8.0 ETT IS SECURED WITH ANCHORFAST AT 24 CM TO THE ORAL LEFT. ANCHORFAST HAS A BITE BLOCK BECAUSE THE PT KEEPS CHEWING ON THE TUBE. BILATERAL BS ARE CTA. PT WAS SUCTIONED FOR SMALL RETURN. HHN GIVEN INLINE WITH 2.5 MG ALBUTEROL AND 0.5 MG ATROVENT WITHOUT ADVERSE REACTION NOTED. PT TEMP IS 98.6 AND IS ON COOLING MEASURES. CONT ORDERED. POX 100% Addendum: 07/27/19 at 0225 by Teresita Banks RT Amended: Links added.
[2019-07-27] MEDS: IPRATROPIUM BROM 0.5 MG/2.5ML INH SOL NEB SCH ×6 (02:06→22:03)
[2019-07-27] MEDS: ALBUTEROL SULF 2.5 MG/0.5ML(0.5%) NEB SOLN NEB SCH ×6 (02:06→22:03)
[2019-07-27] MEDS: AMIODARONE HCL 900 MG in DEXTROSE 500 ML IV SCH (02:30)
[2019-07-27] MEDS: InsuLIN REG 1unit/0.01ml Soln (100units/ml) SC SCH ×5 (04:00→20:00)
[2019-07-27] MEDS: EPINEPHrine HCL INJECTION 4 MG in SODIUM CHL 0.9% 250 ML IV SCH (04:00)
[2019-07-27] MEDS: ACCU-CHEK COMFORT CURVE STRIP VI SCH ×5 (04:01→20:26)
--- NOTE | 2019-07-27 04:03 | NUR ---
RT NOTE ROUTINE VENT CHECK DONE. PT INTUBATED AND ON VENT V11 ON STATED SETTINGS. VENT IS PLUGGED TO RED OUTLET. ALARMS ARE ON AND AUDIBLE AT NURSES STATION. AMBU BAG AT BEDSIDE AND CONNECTED TO O2 SOURCE. 8.0 ETT IS SECURED WITH ANCHORFAST AT 24 CM TO THE ORAL LEFT. ANCHORFAST HAS A BITE BLOCK BECAUSE THE PT KEEPS CHEWING ON THE TUBE. BILATERAL BS ARE CTA. PT WAS SUCTIONED FOR SMALL RETURN. HME, T-PIECE AND INLINE SUCTION CHANGED WITHOUT INCIDENT. PT TEMP IS 98.3. CONT ORDERED. POX 99% Addendum: 07/27/19 at 0437 by Teresita Banks RT Amended: Links added.
[2019-07-27 04:06] LABS: BUN/Creatinine Ratio 39.1; Calcium 7.6 mg/dL (8.5-10.1); Potassium 3.3 mmol/L (3.5-5.1)
[2019-07-27 04:18] LABS: Basophils # (auto) 0 uL; Eosinophils # (auto) 0 uL; Lymphocytes # (auto) 0.3 uL; Monocytes # (auto) 0.1 uL; Red Cell Distribution Width 17.8 % (11.8-14.3)
[2019-07-27 04:19] LABS: Basophils % (auto) 0.4 % (0.0-2.0); Eosinophils % (auto) 0.1 % (0.0-7.0); Hematocrit 25.2 % (41.0-53.0); Hemoglobin 8.6 g/dL (13.5-17.5); Lymphocytes % (auto) 6.7 % (10.0-50.0); Mean Corpuscular Hemoglobin 34.8 pg (28.0-32.0); Mean Corpuscular Volume 102.2 fL (80.0-100.0); Monocytes % (auto) 2.1 % (0.0-12.0); Neutrophils # (auto) 4.2 uL; Neutrophils % (auto) 90.7 % (37.0-80.0); Nucleated Red Blood Cells % 0.2 %; Red Blood Cells 2.47 10^6/uL (4.5-5.90); White Blood Cell 4.6 10^3/uL (4.4-10.8)
[2019-07-27 04:54] LABS: Platelet Count (auto) 19 10^3/uL (140-450)
--- NOTE | 2019-07-27 05:30 | NUR ---
PER BLOOD BANK, AWAITING PLATELETS TO ARRIVE, APPROX. 4 HOURS
[2019-07-27] MEDS: HYDROCORTISONE SOD SUCC 100 MG/2ML INJ VIAL IV SCH ×4 (05:37→22:16)
--- NOTE | 2019-07-27 05:57 | NUR ---
CLOSING NOTE: REMAINS INTUBATED. OPES EYES SPONTANEOUSLY, TRACKS AND FOLLOWS COMMANDS, BUT FALLS BACK ASLEEP EASILY. NO FURTHER DOSES OF VERSED PRN GIVEN SINCE LAST NIGHT. VSS. WILL ENDORSE CARE TO DAY SHIFT.
[2019-07-27] MEDS: SOD CHL 0.45% 1,000 ML IV SCH (06:13)
--- NOTE | 2019-07-27 07:18 | NUR ---
REPORT AND CARE ENDORSED TO ALIS DELGADO
--- NOTE | 2019-07-27 07:45 | NUR ---
BELL CLERK CRITICAL ABG REPORT TO BELL CLERK BY Misbah SPOKE TO MD AND UPDATED ON CURRENT GTT'S AND PATIENTS CURRENT BLOOD SUGAR PER REPORT. PER MD OK TO CONTINUE WITH CPAP TRAIL. RAlissaT AWARE.
[2019-07-27] MEDS: PHENYLEPHRINE INJ 80 MG in SODIUM CHL 0.9% 250 ML IV SCH (08:19)
[2019-07-27] MEDS: PANTOPRAZOLE 40 MG/10 ML VIAL INJ IV SCH (09:01)
[2019-07-27] MEDS ORDERED: POTASSIUM CHL 20MEQ/100ML 100 ML IV ONE (09:30)
--- NOTE | 2019-07-27 09:56 | NUR ---
Abg results given to md Orders to extubate. R.t to be notified.
--- NOTE | 2019-07-27 10:35 | NUR ---
EXTUBATION PATIENT EXTUBATED BY R.T. PATIENT PLACED ON 40% COOL MIST MASK. PRODUCTIVE COUGH NOTED WITH THIN-THICK PINK TINGED SECRETIONS. NO STRIDOR NOTED. POX 97% RR 14-15. PT IN HIGH FOWLERS. WILL CONTINUE TO MONITOR
--- NOTE | 2019-07-27 10:35 | NUR ---
EXTUBATED PT AT THIS TIME WITH NO INCIDENT REPORTED. PT ON CA AT 8LM AT 30% FIO2. NO STRIDOR NOTED. NO DISTRESS NOTED. WILL CONTINUE TO MONITOR P T.
--- NOTE | 2019-07-27 14:56 | NUR ---
KUB RESULTED PER MD IF KUB NEGATIVE, OK TO D/C NG. ABD REMAINS SLIGHTLY DISTENDED. PT DENIES ANY PAIN OR DISCOMFORT AT THIS TIME. NGT removed per MD order following explanation and instruction to patient. Patient verbalized understanding prior to removal. Patient tolerated well.
--- NOTE | 2019-07-27 15:24 | NUR ---
LICENSED WEIGHER AT BEDSIDE DR. PRINCE STATING STOP COMMUNICATION ORDER FOR PLT TRANSFUSION. MD TO BE CONTACTED IF ANY BLEEDING NOTED WITH CURRENT CBC. MD UPDATED PATIENT AT BEDSIDE.
--- NOTE | 2019-07-27 16:00 | NUR ---
PHYSICAL THERAPY PT ASSISTED OOB USING MAX ASSISTANCE BY Nahomy PATIENT IN CHAIR. AFTERNOON CARE PROVIDED, SHAMPOO, ORAL CARE, EXT. COMPLETE BED LINEN CHANGED. PT REMAINS ON 2L/MIN NC POX 96-98%. NO DISTRESS NOTED. PT DENIES ANY PAIN. CALL LIGHT AT REACH.
--- NOTE | 2019-07-27 16:15 | NUR ---
INCENTIVE SPIROMETER PT INSTRUCTED ON IMPORTANCE OF I.S. PT TO RETURN PROPER DEMONSTRATION AND ABLE TO REACH 750ML DURING INSPIRATION WITH ENCOURAGEMENT. WILL CONTINUE TO ENCOURAGE USE.
[2019-07-27] MEDS: NOREPINEPHRINE 8 MG/250ML KIT 250 ML IV SCH (16:20)
[2019-07-27] MEDS: PROPOFOL 100 ML IV SCH (16:20)
--- NOTE | 2019-07-27 16:53 | NUR ---
ICE CHIPS NOT TOLERATED PATIENT NOTED HAVE A PRODUCTIVE COUGH WITH MODERATE BLOOD/ PINKY TINGED THIN SECRETIONS. PT GIVEN AN ICE CHIPS REQUESTED. PT UNABLE TO CLEAR THROAT AND APPEARS TO BE UNABLE TO PASS ICE CHIPS. SHORTLY AFTER PAIN REQUESTED WET SPONGE TO MOISTEN MOUTH. PT SUCKED ON SPONGE POP AND AGAIN UNABLE TO TOLERATE SCANT AMOUNT OF FLUIDS ON SPONGE. PT TO REMAIN NOP. MD TO BE NOTIFIED. INSTRUCTED PATIENT IMPORTANCE OF REMAINING NPO TO PREVENT ASPIRATION. PT AGREED AND VERBALIZED UNDERSTANDING.
--- NOTE | 2019-07-27 17:00 | NUR ---
Central Line Dressing Changes Central line dressing change done with a sterile technique. Cleansed with chloraprep scrub. Bio-patch as available. Occlusive dressing applied. See e-MAR for medications given during this visit.
--- NOTE | 2019-07-27 17:19 | NUR ---
UPDATED DR. LAMB UPDATED ON PATIENTS STATUS. NEW ORDERS IN PLACE.
[2019-07-27] MEDS ORDERED: cefTRIAXone 1GM/50ML D5W 50 ML IV ONE (17:30)
--- NOTE | 2019-07-27 18:10 | NUR ---
PATIENT ASSISTED BACK TO BED BY PHYSICAL THERAPY. PT TOLERATED WELL.
--- NOTE | 2019-07-27 18:37 | NUR ---
PATIENT TO BE TRANSFERRED TO ROOM 263 WITH JOESPH.
--- NOTE | 2019-07-27 19:16 | NUR ---
Patient taken to room 263 via bed on 2l/min nc and portable monitor. Report given to Rn Jacobo. Updated on plan of care. Patient awake alert and oriented, denies any distress, vss. Call light at reach and bed in lowest position.
[2019-07-27] MEDS: INSULIN LANTUS (GLARGINE) 1 /0.01ml (100units/ml) SC SCH (22:16)
[2019-07-28] VITALS: BP 112/54
[2019-07-28] MEDS: InsuLIN REG 1unit/0.01ml Soln (100units/ml) SC SCH ×7 (00:03→23:31)
[2019-07-28] MEDS: SOD CHL 0.45% 1,000 ML IV SCH ×3 (00:06→20:00)
[2019-07-28] MEDS: IPRATROPIUM BROM 0.5 MG/2.5ML INH SOL NEB SCH ×6 (01:51→21:56)
[2019-07-28] MEDS: ALBUTEROL SULF 2.5 MG/0.5ML(0.5%) NEB SOLN NEB SCH ×6 (01:51→21:56)
[2019-07-28] MEDS: ACCU-CHEK COMFORT CURVE STRIP VI SCH ×7 (03:57→23:31)
[2019-07-28 04:00] VITALS: BP 90/54
[2019-07-28] MEDS: HYDROCORTISONE SOD SUCC 100 MG/2ML INJ VIAL IV SCH ×3 (05:29→21:36)
--- NOTE | 2019-07-28 05:45 | NUR ---
AM CARE COMPLETE BED BATH PROVIDED USING CHG WIPES AND WARM WASH CLOTHS. SKIN INTEGRITY REASSESSED: NO NEW CHANGES NOTED. PATIENT IS STRONGER AND ABLE TO TURN SELF WITH MINIMAL ASSISTANCE. PARTIAL LINEN CHANGE DONE, NEW GOWN PLACED ON PATIENT AND REPOSITIONED IN BED FOR COMFORT. PATIENT ENCOURAGED TO USE IS AT BEDSIDE AND RE-EDUCATED PATIENT ON USE, NOTED TO BE ABLE TO GET TO 1,000 CC. CALL LIGHT GIVEN TO PATIENT. CONTINUE POC.
[2019-07-28 06:37] LABS: BUN/Creatinine Ratio 35.6; Calcium 7.5 mg/dL (8.5-10.1)
--- NOTE | 2019-07-28 07:38 | NUR ---
END OF SHIFT NOTE PATIENT RESTING IN BED, NO S/S OF DISTRESS OR SOB, POX 95%, RR18, HR 74. PATIENT REMAINED STABLE THROUGHOUT THE NIGHT.CARE ENDORSED TO DAY SHIFT RN.
[2019-07-28 08:00] VITALS: BP 115/57
[2019-07-28 09:25] LABS: Basophils # (auto) 0 uL; Eosinophils # (auto) 0 uL; Hematocrit 23.8 % (41.0-53.0); Lymphocytes # (auto) 0.3 uL; Monocytes # (auto) 0 uL; Nucleated Red Blood Cells % 0.1 %; White Blood Cell 2.5 10^3/uL (4.4-10.8)
[2019-07-28 09:26] LABS: Lymphocytes % (auto) 11.2 % (10.0-50.0); Mean Corpuscular Hemoglobin 33.2 pg (28.0-32.0); Mean Corpuscular Hgb Conc. 33.4 g/dL (32.0-36.0); Mean Corpuscular Volume 99.3 fL (80.0-100.0); Monocytes % (auto) 1.9 % (0.0-12.0); Neutrophils # (auto) 2.1 uL; Neutrophils % (auto) 86.9 % (37.0-80.0); Red Cell Distribution Width 17.3 % (11.8-14.3)
[2019-07-28 09:31] LABS: Platelet Count (auto) 16 10^3/uL (140-450)
--- NOTE | 2019-07-28 09:36 | NUR ---
CALL OUT TO DR. LAMB TO REPORT PLATELET COUNT OF 16. AWAITING CALL BACK.
--- NOTE | 2019-07-28 09:40 | NUR ---
DR. LAMB CALLED BACK AND REQUESTED DR. PRINCE BE CALLED. DR. PRINCE CALLED AND MESSAGE LEFT.
[2019-07-28 09:44] LABS: Albumin 1.6 g/dL (3.4-5.0); BUN/Creatinine Ratio 39.4; Calcium 7.3 mg/dL (8.5-10.1)
[2019-07-28 09:47] LABS: Bilirubin, Total 0.4 mg/dL (0.2-1.0); Total Protein 4.4 g/dL (6.4-8.2)
[2019-07-28] MEDS: cefTRIAXone 1GM/50ML D5W 50 ML IV SCH (09:51)
[2019-07-28] MEDS: POTASSIUM CHL 20MEQ/100ML 100 ML IV SCH ×2 (09:52→11:27)
[2019-07-28] MEDS: PANTOPRAZOLE 40 MG/10 ML VIAL INJ IV SCH (09:53)
--- NOTE | 2019-07-28 11:22 | NUR ---
Nutrition Follow-up Notes Wt.: 70.6 kg today. Pt's successfully extubated yesterday, on oxygen via nasal cannula, with RT at bedside during rounds this morning. Pt's no signs of distress noted earlier, remains NPO, no diet order yet at this time. Est. Needs BW (69 kg): 9026-1561 kcal (25-30 kcal/kgBW), 69-89 gms pro (1.0-1.3 gms/kgBW r/t severe hypoalb). Will continue to monitor pertinent labs and reassess nutrient need prn Labs: CO2 33 H, K 3.0 L, BUN 26 H, Cr 0.66 L, Ca 7.3 L, Tpro 4.4 L, Alb 1.6 L; HbA1c 13.3 H Skin: Sebastian scale 13, mod risk, pt's sacrum blanchable pink per documentation liaison. GI: Pt's no bowel activity since 07/23/19 per documentation liaison. PES: Increased nutrient needs r/t acute/chronic medical condition aeb Sepsis, DKA, s/p extubation, severe hypoalbuminemia, NPO. Altered nutrition related lab values r/t current/chronic medical condition aeb elev BUN, A1c, severe hypoalb. hypocalcemia, hyperglycemia Will continue to monitor NPO status, skin status, pertinent labs and weight trend. F/u in 3 to 5 days. Rec.: 1.) Advance to oral diet (Consistent Standard Carb: 60 gms/meal diet -per ST's diet texture recommendation) when medically appropriate. 2.) If Albumin continues trending down, consider Prostat 1 pkt BID. 3.) Consider daily MVI with minerals and Asc acid 500 mgs BID prn. 4.) Refer pt to CDE/RD for further nutrition education and weight monitoring upon discharge. 5.) Continue current plan of care.
[2019-07-28 12:00] VITALS: BP 126/67
[2019-07-28] MEDS ORDERED: IV IMMUNE GLOBULIN(IVIG) 10% 20G/200ML IV SCH (15:00)
[2019-07-28 16:00] VITALS: BP 108/46
[2019-07-28] MEDS: diphenhdrAMINE HCL 50 MG/1 ML VL IV SCH (16:04)
[2019-07-28] MEDS: ACETAMINOPHEN 325 MG TAB PO SCH (16:05)
[2019-07-28 16:46] LABS: Albumin 1.7 g/dL (3.4-5.0); BUN/Creatinine Ratio 37.1; Bilirubin, Total 0.5 mg/dL (0.2-1.0); Calcium 7.6 mg/dL (8.5-10.1); Potassium 3.1 mmol/L (3.5-5.1); Total Protein 4.6 g/dL (6.4-8.2)
--- NOTE | 2019-07-28 16:50 | NUR ---
IVIG STARTED. SEE IV SPREAD SHEET.
--- NOTE | 2019-07-28 17:50 | NUR ---
PATIENT TOLERATING IVIG, IVIG INCREASED TO 75 ML/HR FROM 30 ML/HR.
[2019-07-28 20:00] VITALS: BP 140/68
[2019-07-28] MEDS ORDERED: POTASSIUM EFFERVESENT TAB 25 MEQ PO ONE (20:00)
[2019-07-28] MEDS: INSULIN LANTUS (GLARGINE) 1 /0.01ml (100units/ml) SC SCH (21:37)
--- NOTE | 2019-07-28 23:30 | NUR ---
UP TO CHAIR PATIENT REQUESTING TO SIT UP ON CHAIR, MODERATE ASSISTANCE NEEDED. CALL LIGHT GIVEN TO PATIENT AND INSTRUCTED TO CALL WHEN READY TO GO BACK INTO BED. PATIENT VERBALIZES UNDERSTANDING. COMPLETE BED LINEN CHANGE DONE. CONTINUE MONITORING.
[2019-07-29] VITALS (7 sets, daily range): BP systolic 115–131; BP diastolic 42–68
[2019-07-29] MEDS: ALBUTEROL SULF 2.5 MG/0.5ML(0.5%) NEB SOLN NEB SCH ×6 (01:28→22:19)
[2019-07-29] MEDS: IPRATROPIUM BROM 0.5 MG/2.5ML INH SOL NEB SCH ×6 (01:28→22:19)
[2019-07-29] MEDS: InsuLIN REG 1unit/0.01ml Soln (100units/ml) SC SCH ×5 (04:00→20:41)
[2019-07-29] MEDS: ACCU-CHEK COMFORT CURVE STRIP VI SCH ×5 (04:29→20:00)
[2019-07-29] MEDS: DEXTROSE (50%) 50ML SYRG IV PRN ×2 (04:31→08:09)
--- NOTE | 2019-07-29 04:47 | NUR ---
LOW BLOOD SUGAR 0352-BLOOD SUGAR 54, ONE ORANGE JUICE AND ONE APPLE JUICE PROVIDED 0422-BLOOD SUGAR RECHECK 56, DEXTROSE 50% GIVEN IV PER ORDERS : SEE EMAR 0447 BLOOD SUGAR 99
--- NOTE | 2019-07-29 04:48 | NUR ---
BLOOD SUGAR RECHECK :99
--- NOTE | 2019-07-29 06:30 | NUR ---
BLOOD DRAWN FROM RIGHT IJ CENTRAL LINE SENT TO LAB VIA BULLET
[2019-07-29 06:40] LABS: Basophils # (auto) 0 uL; Eosinophils # (auto) 0 uL; Hemoglobin 8.2 g/dL (13.5-17.5); Lymphocytes # (auto) 0.3 uL; Monocytes # (auto) 0 uL; Nucleated Red Blood Cells % 0.1 %; Platelet Count (auto) 23 10^3/uL (140-450)
[2019-07-29 06:44] LABS: Basophils % (auto) 0.1 % (0.0-2.0); Hematocrit 24.5 % (41.0-53.0); Lymphocytes % (auto) 13.1 % (10.0-50.0); Mean Corpuscular Hemoglobin 33.9 pg (28.0-32.0); Mean Corpuscular Hgb Conc. 33.6 g/dL (32.0-36.0); Mean Corpuscular Volume 100.7 fL (80.0-100.0); Monocytes % (auto) 1.5 % (0.0-12.0); Neutrophils # (auto) 1.9 uL; Neutrophils % (auto) 85.3 % (37.0-80.0); Red Blood Cells 2.43 10^6/uL (4.5-5.90); Red Cell Distribution Width 17.3 % (11.8-14.3); White Blood Cell 2.2 10^3/uL (4.4-10.8)
[2019-07-29] MEDS: HYDROCORTISONE SOD SUCC 100 MG/2ML INJ VIAL IV SCH ×3 (06:44→23:20)
[2019-07-29 06:59] LABS: Calcium 7.5 mg/dL (8.5-10.1); Potassium 3.1 mmol/L (3.5-5.1)
[2019-07-29 07:05] LABS: Albumin 1.6 g/dL (3.4-5.0); BUN/Creatinine Ratio 36.1; Bilirubin, Total 0.5 mg/dL (0.2-1.0); Total Protein 4.9 g/dL (6.4-8.2)
--- NOTE | 2019-07-29 07:58 | NUR ---
HYPOGLYCEMIA PATIENTS BLOOD SUGAR READING 50. PT ALERT AND ORIENTED. NO DISTRESS NOTED. PER REPORT PATIENT DRINKS FLUIDS SLOWLY AND PATIENT AT RISK FOR ASPIRATION. PROTOCOL FOLLOWED ORDERED. SEE EMAR.
--- NOTE | 2019-07-29 08:00 | NUR ---
SKIN LEFT BUTTOCK NOTED TO HAVE A REDDENED, NONBLANCHABLE AREA. SKIN CLEANSED. ZGUARD APPLIED WITH OPTIFOAM IN PLACE. PT STATING IN THE PAST HE WAS IN THE HOSPITAL FOR A LONG PERIOD OF TIME AND FORMED A PRESSURE AREA THEN. INFORMED PATIENT HE NEEDS TO INCREASE MOBILITY AND NUTRITION FOR BETTER HEALING AND PREVENTIONS OF WORSENING AREA. WILL CONTINUE TO REPOSITION AT LEAST EVERY 2 HRS. PICTURES TAKEN. W/C TO BE NOTIFIED.
[2019-07-29] MEDS: cefTRIAXone 1GM/50ML D5W 50 ML IV SCH (09:00)
--- NOTE | 2019-07-29 09:30 | NUR ---
MD AT BEDSIDE MD UPDATED ON PATIENTS STATUS. NEW ORDERS IN PLACE.
--- NOTE | 2019-07-29 09:45 | NUR ---
RISK FOR ASPIRATION PATIENT NOTED TO COUGH WITH DRINKS, FLUIDS TO BE THICKENED AND REASSESSED. ONCE FLUIDS THICKENED PATIENT TOLERATED SWALLOWING WITH OUT SIGNIFICANT COUGHING NOTED. ASPIRATION PRECAUTIONS TO REMAIN IN PLACE.
[2019-07-29] MEDS ORDERED: IV IMMUNE GLOBULIN(IVIG) 10% 20G/200ML IV SCH (10:00)
--- NOTE | 2019-07-29 10:00 | NUR ---
MEDICATIONS CRUSHED PATIENT INFORMED OF PO TYLENOL, PT CONCERNED STATING HE NEEDS TO SIT STRAIGHT UP SO HE CAN SWALLOW AND REPORT HAVING TROUBLE WITH PILLS SINCE THIS ADMISSION. OFFERED PATIENT TO CRUSH MEDICATION AND MIX IN APPLESAUCE. PT AGREED AND TOLERATED ADMINISTRATION WELL.
[2019-07-29] MEDS ORDERED: LEVOFLOXACIN 750MG 150 ML IV ONE ×2 (10:30→21:00)
[2019-07-29] MEDS: PANTOPRAZOLE 40 MG/10 ML VIAL INJ IV SCH (11:12)
[2019-07-29] MEDS: POTASSIUM CHL 20MEQ/100ML 100 ML IV SCH ×2 (11:12→12:45)
--- NOTE | 2019-07-29 13:00 | NUR ---
ACTIVITY PATIENT OOB ASSISTED TO CHAIR BY PHYSICAL THERAPY. CALL LIGHT AT REACH. PT TOLERATED WELL.
--- NOTE | 2019-07-29 16:00 | NUR ---
Family updated on pt status Family of MARIAN CARRILLO updated on patient's status and condition. All questions and concerns addressed. Brother verbalized understanding.
[2019-07-29] MEDS: diphenhdrAMINE HCL 50 MG/1 ML VL IV SCH (16:46)
[2019-07-29] MEDS: ACETAMINOPHEN 325 MG TAB PO SCH (16:47)
[2019-07-29] MEDS: SOD CHL 0.45% 1,000 ML IV SCH (17:03)
--- NOTE | 2019-07-29 17:36 | NUR ---
Santhosh WITH HEMATOLOGY AT BEDSIDE.
[2019-07-29] MEDS: MAGNESIUM SULFATE 1GM/100ML 100 ML IV SCH ×2 (17:38→19:40)
[2019-07-29] MEDS ORDERED: FUROSEMIDE 20 MG/2 ML VIAL IV ONE (18:00)
[2019-07-29] MEDS ORDERED: POTASSIUM CHL 20MEQ/100ML 100 ML IV ONE (18:00)
--- NOTE | 2019-07-29 18:00 | NUR ---
PAGED DR. LAMB PAGED TO NOTIFY OF PATIENTS CRACKLES NOTED TO BILATERAL BASES, MD VERBALIZED UNDERSTANDING. MD ALSO NOTIFIED OF PATIENTS REQUEST TO BE PLACED BACK ON ATENOLOL FOR HR CONTROL. BP TRENDING MID 110-120'S. STATED " WE WILL HOLD OFF ON MEDICATION AT THIS TIME". SEE NEW ORDERS. PATIENT NOTIFIED.
--- NOTE | 2019-07-29 18:30 | NUR ---
ACTIVITY PATIENT ASSISTED OOB TO CHAIR USING MODERATE ASSISTANCE. PT TOLERATED ACTIVITY WELL. PT SITTING UP IN CHAIR FEEDING SELF INDEPENDENTLY. ASPIRATION PRECAUTIONS IN PLACE.
--- NOTE | 2019-07-29 18:30 | NUR ---
NO REACTION NOTED TO IVIG, RATE INCREASED ORDERED.
--- NOTE | 2019-07-29 20:04 | NUR ---
Dr. Contreras called and gave orders to transfer pt to Tele and have PT evaluate pt tomorrow. Pt stable at this time.
--- NOTE | 2019-07-29 21:22 | NUR ---
Second bottle of IG started.
[2019-07-30] VITALS (13 sets, daily range): BP systolic 127–148; BP diastolic 66–87
--- NOTE | 2019-07-30 | NUR ---
Third IG bottle hung, report has been given to Reyes SNELL, waiting for the 1 hour reaction time before transfer. Pt stable at this time.
[2019-07-30] MEDS: InsuLIN REG 1unit/0.01ml Soln (100units/ml) SC SCH ×6 (00:40→22:00)
[2019-07-30] MEDS: ALBUTEROL SULF 2.5 MG/0.5ML(0.5%) NEB SOLN NEB SCH ×6 (02:11→22:20)
[2019-07-30] MEDS: IPRATROPIUM BROM 0.5 MG/2.5ML INH SOL NEB SCH ×6 (02:11→22:20)
--- NOTE | 2019-07-30 02:15 | NUR ---
Pt transferred to [facility] via bed, transported by staff. Stable at time of transfer. Care endorsed to Reyes SNELL.
--- NOTE | 2019-07-30 02:17 | NUR ---
transfer assumed care of pt. upon arriving to room, pt awake, alert and oriented x4. pt on 2L NC no distress noted or expressed. pt denies any pain at this time. pt updated on plan of care, to which pt had no questions at this time. pt has nolen in place draining cloudy rigoberto urine. pt oriented to room, use of call light and wall suction on continuous with yankauer in place and in reach. bed locked, low and 2x rails up. pt encouraged to call as needed. this nurse will round q1hr and prn.
[2019-07-30] MEDS: ACCU-CHEK COMFORT CURVE STRIP VI SCH ×6 (04:30→23:12)
[2019-07-30] MEDS: HYDROCORTISONE SOD SUCC 100 MG/2ML INJ VIAL IV SCH ×3 (06:30→23:14)
[2019-07-30 06:59] LABS: Hemoglobin 7.7 g/dL (13.5-17.5)
[2019-07-30 07:00] LABS: Hematocrit 22.4 % (41.0-53.0); Mean Corpuscular Hemoglobin 34.5 pg (28.0-32.0); Mean Corpuscular Hgb Conc. 34.3 g/dL (32.0-36.0); Mean Corpuscular Volume 100.6 fL (80.0-100.0); Red Blood Cells 2.22 10^6/uL (4.5-5.90); Red Cell Distribution Width 17.4 % (11.8-14.3)
[2019-07-30 07:14] LABS: Albumin 1.5 g/dL (3.4-5.0); Calcium 7.3 mg/dL (8.5-10.1); Magnesium 2.1 mg/dL (1.6-2.6); Potassium 3.4 mmol/L (3.5-5.1)
[2019-07-30 07:18] LABS: BUN/Creatinine Ratio 29.3; Bilirubin, Total 0.5 mg/dL (0.2-1.0); Platelet Count (auto) 15 10^3/uL (140-450); Total Protein 5.7 g/dL (6.4-8.2); White Blood Cell 1.8 10^3/uL (4.4-10.8)
[2019-07-30 07:19] LABS: Basophils % (manual) 0 (0.0-2.0); Blast Cells 0; Eosinophils % (manual) 0 (0-7); Metamyelocytes % 0; Myelocytes % 0; Promyelocytes % 0; Reactive Lymphocytes 0
[2019-07-30 07:50] LABS: Band Neutrophils % (manual) 1; Lymphocytes % (manual) 10 (10.0-50.0); Monocytes % (manual) 1 (0-12)
[2019-07-30] MEDS: SOD CHL 0.45% 1,000 ML IV SCH ×2 (08:26→23:12)
--- NOTE | 2019-07-30 08:30 | NUR ---
Opening Shift Note Assumed care of patient, awake and alert. Respiratory even and unlabored. No S/S of distress/SOB or pain. Skin is warm and dry to touch. No s/s of hyperglycemia or hypoglycemia noted. Instructed on POC and to call for assist PRN, will continue to monitor for changes Q1hr and PRN.
[2019-07-30] MEDS: cefTRIAXone 1GM/50ML D5W 50 ML IV SCH (08:53)
[2019-07-30] MEDS: PANTOPRAZOLE 40 MG/10 ML VIAL INJ IV SCH (09:36)
--- NOTE | 2019-07-30 09:51 | NUR ---
SWALLOW EVALUATED. PATIENT ABLE TO TOLERATE MECHANICAL SOFT DIET TEXTURE WITH NECTAR THICKENED LIQUIDS WITH NO OVERT SIGNS OR SYMPTOMS OF ASPIRATION. PATIENT REPORTS DIFFICULTY WITH SWALLOW SINCE EXTUBATION. PATIENT COUGHED ON THIN LIQUIDS. HAS OWN TEETH. ALERT AND ABLE TO FOLLOW MULTIPLE DIRECTIONS.
[2019-07-30] MEDS ORDERED: LEVOFLOXACIN 750MG 150 ML IV SCH (10:00)
[2019-07-30] MEDS ORDERED: HYDROcodone-ACET 5/325MG TAB PO PRN (11:30)
--- NOTE | 2019-07-30 11:30 | NUR ---
Spoke to Dr. Sexton twice regarding patient needs pain meds and he said will come to see patient. No new order received.
[2019-07-30] MEDS ORDERED: guaiFENesin 200 MG/10 ML UD GT PRN (11:45)
[2019-07-30] MEDS ORDERED: VANCOMYCIN PER PHARMACY 0 MG IV SCH (11:45)
--- NOTE | 2019-07-30 13:30 | NUR ---
Plt initiated Order received and verified with additional nurse by read back. Baseline VS obtained and charted. Patient no complaints of pain. Initiated at rate 100 and then increased as tolerated. Will continue to monitor patient for change or indications of reaction. Additional charting as follow in [employer] transfusion history.
[2019-07-30] MEDS: VANCOMYCIN 750mg/250ml 250 ML IV SCH (13:55)
[2019-07-30] MEDS ORDERED: CEFEPIME 2 GM in SODIUM CHL 0.9% 50 ML IV SCH (14:00)
[2019-07-30] MEDS: ACETYLCYSTEINE 20%(200MG/ML) SOL 4ML NEB SCH ×2 (14:12→22:19)
--- NOTE | 2019-07-30 14:24 | NUR ---
Nutrition Consult/Follow-up Notes Wt.: 72.0 kg Pt was awake and oriented when rounded this am. per ot weighs around 141 lbs now and used to weigh 150 lbs. per pt lost wt due to his cancer. per pt has new dx of DM and did not have it before. per pt no N.V but poor appetite and unable to eat food. per pt no oral supplements at home. per pt less very few bites off from tray. pt edu on DM diet and encouraged to eat more. pt`s likes and dislikes noted and dietary updated. pt is currently on CCHO 60 gm msoft diet with inadequate PO of < 50% x 4 per RN doc Est. Needs BW (69 kg): 9514-7682 kcal (25-30 kcal/kgBW), 69-89 gms pro (1.0-1.3 gms/kgBW r/t severe hypoalb). Will continue to monitor pertinent labs and reassess nutrient need prn Labs: CO2 34 H, BUN 22 H, CA 7.3 L. Skin: Sebastian scale 18, mod risk, pt's sacrum blanchable pink per training and documentation specialist. GI: Pt's no bowel activity since 07/23/19 per training and documentation specialist. PES: Increased nutrient needs r/t acute/chronic medical condition aeb Sepsis, DKA, s/p extubation, severe hypoalbuminemia, NPO. Altered nutrition related lab values r/t current/chronic medical condition aeb elev BUN, A1c, severe hypoalb. hypocalcemia, hyperglycemia Will continue to monitor PO intake, skin status, pertinent labs and weight trend. F/u in 3 to 5 days. Rec.: 1.) If Albumin continues trending down, consider Prostat 1 pkt BID. 2) Consider Glucerna 1 carton bid. 3.) Consider daily MVI with minerals and Asc acid 500 mgs BID prn. 4.) Refer pt to CDE/RD for further nutrition education and weight monitoring upon discharge. 5.) Continue current plan of care.
--- NOTE | 2019-07-30 14:30 | NUR ---
First IVIG stared , no reaction at this time, will continue to monitor.
[2019-07-30] MEDS: CEFEPIME 2 GM in SODIUM CHL 0.9% 50 ML IV SCH ×2 (15:19→23:33)
--- NOTE | 2019-07-30 16:00 | NUR ---
Patient has hematuria, Dr. Sexton paged, received new order, noted and carried it out.
[2019-07-30] MEDS: ACETAMINOPHEN 325 MG TAB PO SCH (16:02)
[2019-07-30] MEDS: diphenhdrAMINE HCL 50 MG/1 ML VL IV SCH (16:02)
--- NOTE | 2019-07-30 17:30 | NUR ---
Nolen catheter 3 way insertion for bladder irrigation Patient assessed and determined to be in need of nolen catheter. Order obtained from Dr. Sexton . Patient educated on catheter and reason for insertion. All questions answered. Nolen catheter 22 Serbian inserted with clean sterile technique. Patient tolerated well.
--- NOTE | 2019-07-30 19:30 | NUR ---
Opening Shift Note Assumed care of patient, awake and alert & oriented x4. Pt c/o difficulty breathing; not wearing O2. When questioned, pt stated he was having too much difficulty breathing and the n/c made him feel worse on his neck. This RN instructed pt not to take the O2 off again. Instructed on POC and to call for assist PRN, will continue to monitor for changes Q1hr and PRN. Bed alarm on. Bed in low position and locked. Call light to pt's side as well as phone. Pt planning to call his brother as he states he was incontinent of stool soiling "the entire place" and lost his phone. Pt admits worrying "about everything I have to do, I have to write a will and other things.' Pt states he has no one to help him as his brother has ADD and his two sisters live in [place]. Irrig to F.C.; urine pink lemonade color. IJ intact to R neck; triple lumen, but one is completely occluded.
--- NOTE | 2019-07-30 21:15 | NUR ---
ALIS Weinstein reported to this RN that pt standing beside his bed and asked if he should be. This RN started for pt's room and heard him fall. Pt found on floor between bed and OBT on opposite side of bed. No injury admitted by pt or visualized by nursing team responding to pt. Elle RN, ALIS Weinstein and ALIS Lema all lifted pt into bed. This RN questioned pt if he hit his head at any time; pt denied this. Pt able to CORBIN with purpose and coordination as before fall. ALIS Asif, charge nurse notified. IJ and F/C cont intact. Pt states he was looking for his phone because it has all his contact info and #s in it and no one else had found it.
--- NOTE | 2019-07-30 21:25 | NUR ---
Brian/STEPHANIE assigned to pt.
[2019-07-31] MEDS: ACCU-CHEK COMFORT CURVE STRIP VI SCH ×4 (01:30→12:12)
[2019-07-31] MEDS: InsuLIN REG 1unit/0.01ml Soln (100units/ml) SC SCH ×5 (01:31→16:00)
[2019-07-31] MEDS: VANCOMYCIN 750mg/250ml 250 ML IV SCH ×2 (01:48→13:18)
[2019-07-31] MEDS: ALBUTEROL SULF 2.5 MG/0.5ML(0.5%) NEB SOLN NEB SCH ×4 (02:04→14:03)
[2019-07-31] MEDS: IPRATROPIUM BROM 0.5 MG/2.5ML INH SOL NEB SCH ×4 (02:04→14:03)
[2019-07-31 05:21] VITALS: BP 130/83
[2019-07-31] MEDS: HYDROCORTISONE SOD SUCC 100 MG/2ML INJ VIAL IV SCH (05:43)
[2019-07-31] MEDS: CEFEPIME 2 GM in SODIUM CHL 0.9% 50 ML IV SCH ×2 (05:44→15:00)
[2019-07-31] MEDS: ACETYLCYSTEINE 20%(200MG/ML) SOL 4ML NEB SCH ×2 (06:28→14:03)
[2019-07-31 07:02] LABS: Hemoglobin 7.3 g/dL (13.5-17.5)
[2019-07-31 07:04] LABS: Hematocrit 21.5 % (41.0-53.0); Mean Corpuscular Hemoglobin 33.2 pg (28.0-32.0); Mean Corpuscular Hgb Conc. 33.8 g/dL (32.0-36.0); Mean Corpuscular Volume 98.4 fL (80.0-100.0); Platelet Count (auto) 33 10^3/uL (140-450); Red Blood Cells 2.18 10^6/uL (4.5-5.90); Red Cell Distribution Width 16.8 % (11.8-14.3)
[2019-07-31 07:13] LABS: White Blood Cell 1.6 10^3/uL (4.4-10.8)
[2019-07-31 07:15] LABS: Basophils % (manual) 0 (0.0-2.0); Blast Cells 0; Eosinophils % (manual) 0 (0-7); Metamyelocytes % 0; Myelocytes % 0; Promyelocytes % 0; Reactive Lymphocytes 0
[2019-07-31 07:18] LABS: BUN/Creatinine Ratio 26.4; Calcium 7.4 mg/dL (8.5-10.1)
--- NOTE | 2019-07-31 07:20 | NUR ---
Hospitalist paged for critical WBC of 1.6. No answer received; endorsed to Will, RN day shift order.
[2019-07-31 07:41] LABS: Band Neutrophils % (manual) 2; Lymphocytes % (manual) 11 (10.0-50.0); Monocytes % (manual) 1 (0-12)
--- NOTE | 2019-07-31 07:45 | NUR ---
RECEIVED CALL FROM LAB FOR CRITICAL POTASSIUM LEVEL. PAGED HOSPITALIST. RECEIVED ORDERS. WILL PLACE AND CARRY OUT.
[2019-07-31 07:48] LABS: Potassium 2.9 mmol/L (3.5-5.1)
--- NOTE | 2019-07-31 08:00 | NUR ---
OPENING SHIFT NOTE ASSUMED CARE OF PATIENT. PATIENT IS AWAKE AND ALERT. NO SOB OR SIGNS OF DISTRESS NOTED. SITTER AT BEDSIDE. INSTRUCTED ON POC AND TO CALL FOR HELP PRN. BED IN LOWEST POSITION WITH SIDE RAILS UP X2. BED ALARM IS ON. WILL CONTINUE TO MONITOR Q1HR.
[2019-07-31] MEDS ORDERED: POTASSIUM CHL 20 Meq TABLET PO ONE (08:15)
[2019-07-31 08:28] VITALS: BP 132/71
[2019-07-31] MEDS ORDERED: POTASSIUM CHLORIDE 40 MEQ, LIDOCAINE 1% (LOCAL ANESTH.) 4 ML in SODIUM CHL 0.9% 100 ML IV ONE (09:30)
[2019-07-31] MEDS: PANTOPRAZOLE 40 MG/10 ML VIAL INJ IV SCH (11:35)
[2019-07-31] MEDS: SOD CHL 0.45% 1,000 ML IV SCH (11:36)
[2019-07-31] MEDS ORDERED: ALB5IS NEB (13:52)
[2019-07-31] MEDS ORDERED: [UNRECOGNIZED DRUG - CODE] NEB (13:52)
[2019-07-31] MEDS ORDERED: GUAI-41 GT (13:52)
[2019-07-31] MEDS ORDERED: INSREGI SC (13:52)
[2019-07-31] MEDS ORDERED: IPR002IS NEB (13:52)
[2019-07-31] MEDS ORDERED: PRE5T PO (13:52)
[2019-07-31] MEDS ORDERED: MERO500I3 IV (13:52)
[2019-07-31] MEDS ORDERED: AZIT250T7 PO (13:52)
--- NOTE | 2019-07-31 15:39 | NUR ---
D/C Planning Per consult for SNF placement for rehab. Contacted [facility] Ph:) Fax:) Faxed medical records. Per Isaias from [facility] Pt has been accepted to room [address] Costa. Contacted [facility] Ph:( [phone]) spoke to Thaddeus. Per Thaddeus from [facility] transportation picking belt operator will be at 18:00 via [employer]. SUNDAY [employer] order was sent to [employer]. Informed RN Will. Addendum: 07/31/19 at 1558 by NUSRAT DEMPSEY Amended: Links added.
--- NOTE | 2019-07-31 16:20 | NUR ---
Assessment and SS Consult Pt is a 74 yr old alert and oriented male. Prior to admit, pt was living with and helping to take care of his half-brother and father. Prior to admit, pt used a walker to ambulate and was independent with ADL's, cooking and cleaning. Pt stated that he has leukemia and was recently diagnosed with diabetes. SS consult for pt being depressed with making final arrangements. Pt stated that he is unable to take care of his family members anymore and are making arrangements to have them taken care of from other family members. Pt is working on getting early custodial. 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 Pt is also working on a living will. Pt is overwhelmed with it all and states that he feels anxious that he will before getting everything settled. SW helped pt to process his emotions and to prioritize his health above other affairs. Pt stated that he is willing to go to a SNF if the recommends it so that he can work on building his strength back. Pt is currently receiving Chemo treatments for leukemia. Pt is connected to a Primary doctor Garima and Oncologist Dr. Hewitt. Pt states that he thinks he has an advanced directive on file. Pt states that he is a full code. Pt stated that he can't drive and will need transportation, either from SNF or family member. D/C planning still in progress. Addendum: 07/31/19 at 1631 by KALEY BOLANOS Amended: Links added.
[2019-07-31 16:55] VITALS: BP 150/86
--- NOTE | 2019-07-31 18:49 | NUR ---
Discharge instructions given as ordered. All questions and concerns addressed. Patient verbalized understanding. Medication reconciliation form completed and copy given to patient. Telemetry unit returned to ICU. Report given to at [[facility]. No distress noted at time of departure.
[2019-07-31] MEDS ORDERED: predniSONE 5 MG TAB PO SCH (22:00)
== END 2019-07-31 18:55 | DRG 871 ==
LOC: EDBD 15:00 → ER 15:11 → TELE 15:12 → ICU WEST 20:32 → DOU IN ICU 07-27 19:13 → TELE-WESTW 07-30 01:39
PROVIDERS: ADMIT Nurse Practitioner Acute Care; ATTEND Internal Medicine
PROC: 5A1945Z Respiratory Ventilation, 24-96 Consecutive Hours (ICD-10-PCS; principal; 2019-07-23)
PROC: 0BH18EZ Insertion of Endotracheal Airway into Trachea, Via Natural or Artificial Opening Endoscopic (ICD-10-PCS; 2019-07-23)
PROC: 02HV33Z Insertion of Infusion Device into Superior Vena Cava, Percutaneous Approach (ICD-10-PCS; 2019-07-23)
PROC: 5A2204Z Restoration of Cardiac Rhythm, Single (ICD-10-PCS; 2019-07-24)
PROC: 30233R1 Transfusion of Nonautologous Platelets into Peripheral Vein, Percutaneous Approach (ICD-10-PCS; 2019-07-26)
DX: A41.9 Sepsis, unspecified organism (principal); J96.00 Acute respiratory failure, unspecified whether with hypoxia or hypercapnia; E10.10 Type 1 diabetes mellitus with ketoacidosis without coma; N17.0 Acute kidney failure with tubular necrosis; I21.4 Non-ST elevation (NSTEMI) myocardial infarction; G93.41 Metabolic encephalopathy; R65.21 Severe sepsis with septic shock; E44.0 Moderate protein-calorie malnutrition; C95.90 Leukemia, unspecified not having achieved remission; C85.90 Non-Hodgkin lymphoma, unspecified, unspecified site; D61.818 Other pancytopenia; D68.0 Von Willebrand disease; E87.0 Hyperosmolality and hypernatremia; I13.0 Hypertensive heart and chronic kidney disease with heart failure and stage 1 through stage 4 chronic kidney disease, or unspecified chronic kidney disease; I42.9 Cardiomyopathy, unspecified; I48.20 Chronic atrial fibrillation, unspecified; I48.92 Unspecified atrial flutter; I50.22 Chronic systolic (congestive) heart failure; N18.4 Chronic kidney disease, stage 4 (severe); Z99.11 Dependence on respirator [ventilator] status; D53.9 Nutritional anemia, unspecified; D69.59 Other secondary thrombocytopenia; D75.89 Other specified diseases of blood and blood-forming organs; E10.22 Type 1 diabetes mellitus with diabetic chronic kidney disease; E10.649 Type 1 diabetes mellitus with hypoglycemia without coma; E86.0 Dehydration; E87.6 Hypokalemia; I70.8 Atherosclerosis of other arteries; K80.20 Calculus of gallbladder without cholecystitis without obstruction; N20.0 Calculus of kidney; N40.0 Benign prostatic hyperplasia without lower urinary tract symptoms; E66.9 Obesity, unspecified; E10.65 Type 1 diabetes mellitus with hyperglycemia; R31.0 Gross hematuria; Z87.442 Personal history of urinary calculi; Z95.1 Presence of aortocoronary bypass graft; Z79.899 Other long term (current) drug therapy; Z88.0 Allergy status to penicillin; Z68.26 Body mass index [BMI] 26.0-26.9, adult
CPT/HCPCS: 31500; 36415; 36556; 36600; 51702; 70450; 71045; 71250; 74018; 74176; 80048; 80053; 80074; 80202; 81001; 82010; 82533; 82805; 82962; 83036; 83605; 83615; 83735; 83880; 83930; 84100; 84132; 84484; 85007; 85025; 85027; 85379; 85610; 85730; 86703; 86850; 86900; 86901; 87040; 87070; 87076; 87077; 87081; 87086; 87147; 87186; 87205; 87804; 92610; 93005; 93306; 94002; 94003; 94640; 94667; 94668; 96365; 96366; 96368; 96375; 97116; 97163; 97530; 99291; C9113; G0378; J0171; J0330; J0696; J1447; J1561; J1815; J1956; J2001; J2185; J2250; J2704; J3480; J7060